=== PATIENT | male | born 1945 | race Caucasian/White ===

== ENCOUNTER 2023-10-28 14:45 | Outpatient (CLI) | payer OTHER, SELFPAY | END 2023-10-28 14:46 | disposition home or self-care (01) | LOC: SLEEP 11-02 09:09 | PROVIDERS: Visit Provider Family Medicine | DX: G47.33 Obstructive sleep apnea (adult) (pediatric) (principal); G47.36 Sleep related hypoventilation in conditions classified elsewhere | CPT/HCPCS: G0399 ==

== ENCOUNTER 2024-03-10 13:55 | Outpatient (CLI) | payer OTHER, SELFPAY ==
--- NOTE | 2024-03-10 14:04 | USCV_ITS ---
Noe Pappas Age: 79 Gender: M : 1945 Exam Date: 03/10/2024 14:31 Ordering Phys: Stanislav Gomes DO Technologist: NELDA Exam Location: [facility] [place] Indication: CAD BP: 170 / 78 HR: 51 Rhythm: Sinus Technical Quality: Adequate MEASUREMENTS (Male / Female) Normal Values 2D ECHO LV Diastolic Diameter PLAX 4.8 cm 4.2 - 5.9 / 3.9 - 5.3 cm IVS Diastolic Thickness 1.5 cm 0.6 - 1.0 / 0.6 - 0.9 cm IVS Systolic Thickness 1.7 cm LVPW Diastolic Thickness 1.6 cm 0.6 - 1.0 / 0.6 - 0.9 cm LVPW Systolic Thickness 2.2 cm LVOT Diameter 2.0 cm LV Ejection Fraction 2D Teich 40.6 % LV Ejection Fraction MOD 2C 49.9 % LV Ejection Fraction 2C AL 49.6 % LA Diameter 3.5 cm RA Systolic Volume 4C AL 23.5 ml RA Systolic Volume 4C MOD 23.0 ml LA Sys Volume AL 36.0 cm cubed LA Sys Volume Index AL 15.9 cm cubed/m squared Aorta at Sinotubular Diameter 2.6 cm IVC Diameter 1.8 cm M-MODE LA Ao Ratio MM 1.1 AV Cusp Separation MM 1.4 cm DOPPLER AV Peak Velocity 188.0 cm/s LVOT Peak Velocity 93.0 cm/s AV Area Cont Eq vti 1.5 cm squared AV Area Cont Eq pk 1.5 cm squared MV Peak Velocity 106.0 cm/s MV Area PHT 2.7 cm squared Mitral E to A Ratio 0.9 TV Peak Velocity 142.0 cm/s TR Peak Velocity 148.0 cm/s TR Peak Gradient 8.8 mmHg TR Mean Velocity 130.0 cm/s TR Mean Gradient 6.9 mmHg TR Velocity Time Integral 54.7 cm TV Peak E Velocity 38.0 cm/s Right Atrial Pressure 3.0 mmHg Pulmonary Artery Systolic Pressu 11.8 mmHg PV Peak Velocity 72.0 cm/s RV Ejection Time 0.4 s FINDINGS Left Ventricle Left ventricle is normal in size. LV systolic function is normal with EF of 50 to 55%. No regional wall motion abnormalities are seen.Diastolic dysfunction is noted. Right Ventricle Normal in size and function Right Atrium Normal in size Left Atrium Normal in size Mitral Valve Mild mitral annular calcification. Trace mitral regurgitation. Aortic Valve Aortic valve is thickened. Mild aortic stenosis with aortic valve area 1.53 cm2 and mean gradient of 10 mmHg. Tricuspid Valve Insufficient TR jet to calculate RVSP. Pulmonic Valve Not well-visualized. Pericardium Normal Aorta Normal in size IVC Appears to be normal CONCLUSIONS LV systolic function is normal with EF of 50 to 55%. Diastolic dysfunction noted Trace mitral regurgitation Mild aortic stenosis No comparison studies are available. Antoine Phillip MD (Electronically Signed) Final Date: 19 Mar 2024 14:31 S
== END 2024-03-10 13:56 | disposition home or self-care (01) ==
LOC: RAD 13:57
PROVIDERS: PCP Emergency Medicine Emergency Medical Services; Visit Provider Family Medicine
DX: I25.10 Atherosclerotic heart disease of native coronary artery without angina pectoris (principal); I35.0 Nonrheumatic aortic (valve) stenosis
CPT/HCPCS: 93306

== ENCOUNTER 2025-10-19 10:30 | Inpatient (IN) | payer OTHER, SELFPAY ==
[2025-10-19] VITALS (18 sets, daily range): BP systolic 92–121; BP diastolic 51–76; PULSE 75–83; RESP 12–27; TEMP 36.3–36.9; O2SAT 90–96; BMI 29.5; BMI 30.3
--- NOTE | 2025-10-19 10:40 | XR_ITS ---
WS: [id number] XR foot RT min 3V* [id number] REASON FOR EXAM: toe injury FINDINGS: Small lucencies in the soft tissues of the tuft tissue swelling adjacent to the tuft of the distal phalanx of the first toe. No radiopaque soft tissue foreign body. No periosteal reaction or bone erosion. 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 XR/XR foot RT min 3V* 13020 IMPRESSION: Soft tissue abnormality without acute bone or joint abnormality.
--- NOTE | 2025-10-19 10:44 | W.ED.WOUNDLC ---
HPI - Wound/Laceration General: Chief Complaint: Wound/Laceration Stated Complaint: Rt big toe inj Time Seen by Provider: 10/19/25 10:39 History of Present Illness: 80-year-old man with a history of diabetes, neuropathy, peripheral vascular disease, and hypertension who presents to the emergency room with worsening foot infection on his left great toe. This has been going on for over a week now. He was started on some antibiotics by his primary but this has not yet improved. Actually is gotten worse he says. He follows with Dr. Ren and podiatry for his diabetic neuropathy and has never had an infection like this before. No systemic fevers. No altered mental status. Related Data Home Medications ?Medication ?Instructions ?Recorded ?Confirmed albuterol sulfate 90 mcg/actuation 2 puff inhalation QID PRN 10/19/25 10/19/25 aerosol inhaler Shortness Of Breath Or Wheezing allopurinol 300 mg tablet 300 mg PO DAILY 10/19/25 10/19/25 aspirin 81 mg tablet,delayed 81 mg PO DAILY 10/19/25 10/19/25 release atorvastatin 40 mg tablet 40 mg PO QPM 10/19/25 10/19/25 cholecalciferol (vitamin D3) 50 50 mcg PO DAILY 10/19/25 10/19/25 mcg (2,000 unit) tablet (Vitamin D3) clopidogrel 75 mg tablet 75 mg PO DAILY 10/19/25 10/19/25 colesevelam 625 mg tablet 625 mg PO TID 10/19/25 10/19/25 diclofenac sodium 1 % topical gel See Rx Instructions .Route .COMPLEX 10/19/25 10/19/25 (Voltaren Arthritis Pain) empagliflozin 25 mg tablet 25 mg PO QAM 10/19/25 10/19/25 famotidine 20 mg tablet 20 mg PO BID 10/19/25 10/19/25 fluticasone propionate 50 2 spray intranasal DAILY 10/19/25 10/19/25 mcg/actuation nasal spray,suspension glimepiride 4 mg tablet 8 mg PO QAM 10/19/25 10/19/25 ketoconazole 2 % topical cream 1 applic topical BID PRN 10/19/25 10/19/25 red/flaking areas magnesium oxide 400 mg PO DAILY 10/19/25 10/19/25 methyl salicylate 30 %-menthol 10 1 applic topical QID PRN pain 10/19/25 10/19/25 % topical cream (Icy Hot) semaglutide (weight loss) 0.25 0.25 mg SUBCUT Q7D 10/19/25 10/19/25 mg/0.5 mL subcutaneous pen injector telmisartan 80 1 tab PO DAILY 10/19/25 10/19/25 mg-hydrochlorothiazide 12.5 mg tablet vit C 226 mg-vit E 90 mg-copper 1 cap PO BID 10/19/25 10/19/25 0.8 mg-zinc oxide-lutein 5 mg capsule (PreserVision Lutein) Previous Rx's ?Medication ?Instructions ?Recorded gabapentin 300 mg capsule 900 mg (3 x 300 mg) PO TID #810 01/04/23 caps diphenhydramine-zinc acetate 2 1 spray topical QID PRN skin 04/23/25 %-0.1 % topical spray (Benadryl irritation #59 mL Itch Cooling) febuxostat 80 mg tablet 80 mg PO DAILY #90 tabs 10/01/25 doxycycline hyclate 100 mg capsule 100 mg PO BID cellulitis #14 caps 10/12/25 levofloxacin 750 mg tablet 750 mg PO DAILY 7 days #7 tabs 10/18/25 Allergies Allergy/AdvReac Type Severity Reaction Status Date / Time MIRACLE Inhibitors Allergy Severe pancreatiti Verified 10/18/25 17:50 s atorvastatin (From Lipitor) Allergy Severe pancreatiti Verified 10/18/25 17:50 s Review of Systems Narrative: Constitutional symptoms: Negative except as documented in HPI. Skin symptoms: Negative except as documented in HPI. Eye symptoms: Negative except as documented in HPI. ENMT symptoms: Negative except as documented in HPI. Respiratory symptoms: Negative except as documented in HPI. Cardiovascular symptoms: Negative except as documented in HPI. Gastrointestinal symptoms: Negative except as documented in HPI. Genitourinary symptoms: Negative except as documented in HPI. Musculoskeletal symptoms: Negative except as documented in HPI. Neurologic symptoms: Negative except as documented in HPI. Psychiatric symptoms: Negative except as documented in HPI. Endocrine symptoms: Negative except as documented in HPI. PFSH ED PFSH: Social History Smoking and tobacco/nicotine status: former use of tobacco/nicotine Physical Exam Narrative: EXAM NARRATIVE: General: Alert, no acute distress. Skin: Warm, dry. Left great toe is in picture below. Blackening, redness, swelling Head: Normocephalic, atraumatic. Neck: Supple, trachea midline. Eye: Extraocular movements are intact. Ears, nose, mouth and throat: mucosa moist. Cardiovascular: Regular, Normal peripheral perfusion. Respiratory: Lungs are clear to auscultation, respirations are non-labored, breath sounds are equal, Symmetrical chest wall expansion. Gastrointestinal: Soft, Nontender, Non distended Musculoskeletal: Normal ROM, no deformity. Neurological: Alert and oriented, No focal neurological deficit observed. Psychiatric: Cooperative, appropriate mood & affect. Course Vital Signs: Vital signs: Vital Signs Temperature 97.8 F 10/19/25 10:37 Pulse Rate 75 10/19/25 10:37 Respiratory Rate 16 10/19/25 10:37 Blood Pressure 106/76 10/19/25 10:37 Pulse Oximetry 93 10/19/25 10:37 Oxygen Delivery Me thod Room Air 10/19/25 10:37 MDM - Wound/Laceration Medical Decision Making Medical decision making Patient's reason for coming to the emergency room: Social determinants: Patient is . He says his has dementia and he is quite concerned about getting home before nighttime. We are working to try to get family member to help care for his princess. I reviewed the patient's medical record. 80-year-old man with a history of diabetes, neuropathy, peripheral vascular disease, and hypertension I reviewed the patient's current home meds Patient is on Plavix. Alternate historians: None Differential diagnosis including but not limited to and based on the above HPI, review of systems and physical exam in this patient with lower extremity swelling and redness: This appears to be a pretty clear-cut diabetic foot infection. Inflammatory markers. Blood cultures. Procalcitonin all to determine extent of infection. Orders placed to evaluate differential diagnosis based on the above differential, HPI and physical exam EKG: Time 1154. Rate 76. Normal sinus rhythm, No ST-T changes, no ectopy, right bundle branch block, This was reviewed and interpreted by myself the ER physician at 1159 X-ray of the left foot: Soft tissue abnormality with possible air. No bone or joint abnormality. This was reviewed and interpreted by myself the emergency room physician. I also reviewed the radiology report. Lab Review: Laboratory results were reviewed and interpreted by myself the emergency room physician. No leukocytosis. BUN and creatinine are somewhat elevated at 58 and 1.9. I do not know his baseline. CRP is elevated at 62 and ESR is elevated at 31. Lactic acid is negative. Assessment of risk: Level of risk: High risk patient. Multiple comorbidities. Also concerns for his at home. Hospitalization considerations: Patient is being admitted for surgery Reexamination: Patient remained stable. No increased work of breathing. No altered mental status. No focal motor deficits. Consultation: I spoke with Dr. Rivera who is on-call for podiatry. He saw the patient in the emergency room agrees with antibiotics and admission. Consultation: I spoke with Dr. Kimble who is on-call for the hospitalist service who agrees to admission. Assessment and plan: Diabetic foot infection Renal insufficiency ?IV cefepime and Zyvox in the emergency room. 1 L normal saline bolus. -I discussed the patient with the hospitalist on-call who is admitting the patient. - Discussed findings and plan with patient. Answered any questions. - All laboratory values were reviewed and interpreted personally by myself, the ER physician - All imaging was reviewed and interpreted personally by myself, the ER physician. - Evaluation and treatment of this problem were appropriate in the emergency setting Lab Data 10/19/25 10:58 10/19/25 10:58 Radiology Impressions Foot X-Ray 10/19/25 10:40 IMPRESSION: Soft tissue abnormality without acute bone or joint abnormality. Laboratory Results WBC 10.33 10^3/uL (3.29-11.43) 10/19/25 10:58 RBC 4.26 10^6/uL (3.85-5.65) 10/19/25 10:58 Hgb 13.10 g/dL (11.27-16.99) 10/19/25 10:58 Hct 41.4 % (37-53) 10/19/25 10:58 MCV 97.2 fl (82-101) 10/19/25 10:58 MCH 30.8 pg (27-33) 10/19/25 10:58 MCHC 31.6 g/dL (30-55) 10/19/25 10:58 RDW 14.6 % (12.1-15.1) 10/19/25 10:58 Plt Count 255 10^3/cmm (157-399) 10/19/25 10:58 MPV 9.3 fL (7.4-10.4) 10/19/25 10:58 Neut % (Auto) 68.2 % 10/19/25 10:58 Lymph % (Auto) 15.9 % 10/19/25 10:58 Calvert % (Auto) 12.7 % 10/19/25 10:58 Eos % (Auto) 2.2 % 10/19/25 10:58 Baso % (Auto) 0.7 % 10/19/25 10:58 Neut # (Auto) 7.05 10^3/uL (1.8-7.7) 10/19/25 10:58 Lymph # (Auto) 1.6 10^3/uL (0.8-4.8) 10/19/25 10:58 Calvert # (Auto) 1.3 10^3/uL (0.2-0.9) H 10/19/25 10:58 Eos # (Auto) 0.2 10^3/uL (0.0-0.8) 10/19/25 10:58 Baso # (Auto) 0.1 10^3/uL (0.0-0.1) 10/19/25 10:58 Nucleated RBC % (auto) 0 % 10/19/25 10:58 Nucleated RBCs # 0.0 /100WBC 10/19/25 10:58 ESR 31 mm/hr (0-10) H 10/19/25 10:58 PT 14.70 SECONDS (12.1-14.9) 10/19/25 10:58 INR 1.07 (0.8-1.2) 10/19/25 10:58 APTT 30.1 SECONDS (23.9-36.7) 10/19/25 10:58 Sodium 135 mmol/L (136-145) L 10/19/25 10:58 Potassium 4.5 mmol/L (3.5-5.1) 10/19/25 10:58 Chloride 98 mmol/L (98-107) 10/19/25 10:58 Carbon Dioxide 22 mmol/L (22-29) 10/19/25 10:58 Anion Gap 19.5 (5-19) H 10/19/25 10:58 BUN 58 mg/dL (8-23) H 10/19/25 10:58 Creatinine 1.9 mg/dL (0.7-1.2) H 10/19/25 10:58 GFR Calculation Not Reportable 10/19/25 10:58 Glucose 88 mg/dL (65-115) 10/19/25 10:58 Calculated Osmolality 296 mOsm/kg (285-295) H 10/19/25 10:58 Lactic Acid 1.0 mmol/L (0.5-2.2) 10/19/25 10:58 Calcium 9.4 mg/dL (8.5-10.5) 10/19/25 10:58 Total Bilirubin 0.6 mg/dL (0.15-1.2) 10/19/25 10:58 AST 30 U/L (0-40) 10/19/25 10:58 ALT 33 U/L (0-41) 10/19/25 10:58 Alkaline Phosphatase 83 U/L (40-130) 10/19/25 10:58 C-Reactive Protein 62.1 mg/L (0.0-4.9) H 10/19/25 10:58 Total Protein 7.7 g/dL (6.6-8.7) 10/19/25 10:58 Albumin 3.3 g/dL (3.5-5.2) L 10/19/25 10:58 Globulin 4.4 g/dL (1.3-4.6) 10/19/25 10:58 Procalcitonin 0.25 ng/mL (0-0.5) 10/19/25 10:58 All radiology interpretation(s) finalized by discharge Discharge Plan Discharge Patient Disposition: Admitted As Inpatient Clinical Impression: Diabetic foot infection, Renal insufficiency Condition: Stable Coding Level of Care Code ED Chair Mechanic for Wanda Amador
[2025-10-19 11:06] LABS: Hematocrit 41.4 % (37-53); Hemoglobin 13.10 g/dL (11.27-16.99); Mean Corpuscular HGB Conc 31.6 g/dL (30-55); Mean Corpuscular Hemoglobin 30.8 pg (27-33); Mean Corpuscular Volume 97.2 fl (82-101); Nucleated Red Blood Cells % 0 %; Platelet Count 255 10^3/cmm (157-399); Red Blood Count 4.26 10^6/uL (3.85-5.65); White Blood Count 10.33 10^3/uL (3.29-11.43)
--- NOTE | 2025-10-19 11:13 | PC.PHAR ---
Pt is [facility] for med list 10/19/25 11:13am
[2025-10-19] MEDS: linezolid premix 600 MG/300 ML PREMIX 300 MG IV (11:20)
[2025-10-19] MEDS: cefepime 2,000 mg SDV 2000 MG IVP (11:20)
[2025-10-19 11:32] LABS: Lactic Sepsis W/Reflex 1.0 mmol/L (0.5-2.2)
[2025-10-19 11:43] LABS: Procalcitonin 0.25 ng/mL (0-0.5)
[2025-10-19 11:54] LABS: Alanine Aminotransferase 33 U/L (0-41); Albumin Level 3.3 g/dL (3.5-5.2); Alkaline Phosphatase 83 U/L (40-130); Anion Gap 19.5 (5-19); Aspartate Amino Transferase 30 U/L (0-40); Blood Urea Nitrogen 58 mg/dL (8-23); Calcium 9.4 mg/dL (8.5-10.5); Carbon Dioxide 22 mmol/L (22-29); Chloride 98 mmol/L (98-107); Globulin 4.4 g/dL (1.3-4.6); Glucose 88 mg/dL (65-115); Osmolality Calculated 296 mOsm/kg (285-295); Potassium 4.5 mmol/L (3.5-5.1); Sodium 135 mmol/L (136-145); Total Protein 7.7 g/dL (6.6-8.7)
--- NOTE | 2025-10-19 11:54 | ECG_ITS ---
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
[2025-10-19 12:03] LABS: INR 1.07 (0.8-1.2); Prothrombin Time 14.70 SECONDS (12.1-14.9)
[2025-10-19 12:04] LABS: Partial Thromboplastin Time 30.1 SECONDS (23.9-36.7)
--- NOTE | 2025-10-19 12:39 | ANES.PREANE2 ---
Pre-Anesthetic Assessment Height/Weight: Height 5 ft 9 in Weight 200 lb Temp Pulse Resp BP Pulse Ox O2 Del Method 97.8 F 75 16 106/76 93 Room Air 10/19/25 10:37 10/19/25 10:37 10/19/25 10:37 10/19/25 10:37 10/19/25 10:37 10/19/25 10:37 Preop Diagnosis: Osteomyelitis Was Beta Mir taken within 24 hours: N/A Was Clonidine taken within 24 hours: N/A Social No alcohol and No tobacco Exam alert, oriented x 3, clear to auscultation bilaterally and regular rate & rhythm Airway Submandibular: within normal limits Cervical ROM: within normal limits Mallampati: Class III Comments: Comments: Multiple missing teeth, denies any loose Anesthetic Plan ASA status: 3 Anesthesia: MAC Other: No prior issues with anesthesia NPO since yesterday evening History of type 2 diabetes on glipizide. Preop BS 88 GERD on omeprazole Hypertension on telmisartan?HCTZ Labs reviewed from 10/19/2025 and acceptable for procedure today Patient on semaglutide. Taken 2 days ago EKG sinus rhythm with RBBB Plan for GETA with RSI Medications/Allergies Home Medications ?Medication ?Instructions ?Recorded ?Confirmed ?Last Taken ?Type gabapentin 300 mg capsule 900 mg (3 x 300 mg) PO TID #810 01/04/23 10/19/25 10/18/25 Rx caps diphenhydramine-zinc acetate 2 1 spray topical QID PRN skin 04/23/25 10/19/25 Unknown Rx %-0.1 % topical spray (Benadryl irritation #59 mL Itch Cooling) febuxostat 80 mg tablet 80 mg PO DAILY #90 tabs 10/01/25 10/19/25 10/18/25 Rx doxycycline hyclate 100 mg capsule 100 mg PO BID cellulitis #14 caps 10/12/25 10/19/25 10/18/25 Rx levofloxacin 750 mg tablet 750 mg PO DAILY 7 days #7 tabs 10/18/25 10/19/25 Unknown Rx albuterol sulfate 90 mcg/actuation 2 puff inhalation QID PRN 10/19/25 10/19/25 Unknown History aerosol inhaler Shortness Of Breath Or Wheezing allopurinol 300 mg tablet 300 mg PO DAILY 12/11/0110/19/25 10/18/25 History aspirin 81 mg tablet,delayed 81 mg PO DAILY 10/19/25 10/19/25 10/18/25 History release atorvastatin 40 mg tablet 40 mg PO QPM 10/19/25 10/19/25 10/18/25 History cholecalciferol (vitamin D3) 50 50 mcg PO DAILY 10/19/25 10/19/25 10/18/25 History mcg (2,000 unit) tablet (Vitamin D3) clopidogrel 75 mg tablet 75 mg PO DAILY 10/19/25 10/19/25 10/18/25 History colesevelam 625 mg tablet 625 mg PO TID 10/19/25 10/19/25 10/18/25 History diclofenac sodium 1 % topical gel See Rx Instructions .Route .COMPLEX 10/19/25 10/19/25 Unknown History (Voltaren Arthritis Pain) empagliflozin 25 mg tablet 25 mg PO QAM 10/19/25 10/19/25 10/18/25 History famotidine 20 mg tablet 20 mg PO BID 10/19/25 10/19/25 10/18/25 History fluticasone propionate 50 2 spray intranasal DAILY 10/19/25 10/19/25 10/18/25 History mcg/actuation nasal spray,suspension glimepiride 4 mg tablet 8 mg PO QAM 10/19/25 10/19/25 10/18/25 History ketoconazole 2 % topical cream 1 applic topical BID PRN 10/19/25 10/19/25 Unknown History red/flaking areas magnesium oxide 400 mg PO DAILY 10/19/25 10/19/25 10/18/25 History methyl salicylate 30 %-menthol 10 1 applic topical QID PRN pain 10/19/25 10/19/25 Unknown History % topical cream (Icy Hot) semaglutide (weight loss) 0.25 0.25 mg SUBCUT Q7D 10/19/25 10/19/25 10/17/25 History mg/0.5 mL subcutaneous pen injector telmisartan 80 1 tab PO DAILY 10/19/25 10/19/25 10/18/25 History mg-hydrochlorothiazide 12.5 mg tablet vit C 226 mg-vit E 90 mg-copper 1 cap PO BID 10/19/25 10/19/25 10/18/25 History 0.8 mg-zinc oxide-lutein 5 mg capsule (PreserVision Lutein) Allergies Allergy/AdvReac Type Severity Reaction Status Date / Time MIRACLE Inhibitors Allergy Severe pancreatiti Verified 10/18/25 17:50 s atorvastatin (From Lipitor) Allergy Severe pancreatiti Verified 10/18/25 17:50 s [facility] Anesthesia Social History Smoking and tobacco/nicotine status: former use of tobacco/nicotine Data Anesthesia 10/19/25 10:58 10/19/25 10:58 Short CBC 10/19/25 Range/Units 10:58 WBC 10.33 (3.29-11.43) 10^3/uL Hgb 13.10 (11.27-16.99) g/dL Hct 41.4 (37-53) % MCV 97.2 (82-101) fl Plt Count 255 (157-399) 10^3/cmm Neut % (Auto) 68.2 % Neut # (Auto) 7.05 (1.8-7.7) 10^3/uL BMP 10/19/25 10:58 Sodium 135 L Potassium 4.5 Chloride 98 Carbon Dioxide 22 BUN 58 H Creatinine 1.9 H Glucose 88 Calcium 9.4 Liver Function 10/19/25 Range/Units 10:58 Total Bilirubin 0.6 (0.15-1.2) mg/dL AST 30 (0-40) U/L ALT 33 (0-41) U/L Alkaline Phosphatase 83 (40-130) U/L Albumin 3.3 L (3.5-5.2) g/dL Coags 10/19/25 10:58 ESR 31 H PT 14.70 INR 1.07 APTT 30.1 C-Reactive Protein 62.1 H Microbiology 10/19/25 11:00 Blood Culture - Preliminary Blood SPECIMEN COLLECTED 10/19/25 11:00 Blood Culture - Preliminary Blood SPECIMEN COLLECTED
--- NOTE | 2025-10-19 13:18 | P.HPUD_ITS ---
Surgery/Procedure H&P Update DATE OF PROCEDURE: October 19, 2025 DATE H&P PERFORMED: 10/19/25 H&P UPDATE INFORMATION: I have reviewed H&P completed within last 30 days, I have examined patient prior to procedure, No changes to prior documentation, H&P to be scanned into chart, H&P is in [facility] EMR on date indicated and Risks and benefits of the procedure reviewed PLANNED PROCEDURE: Operation Date: 10/19/25 13:30 Proposed Procedures p Amputation Toe/s Hallux Amputation(Right) - Cm Rivera DPM
--- NOTE | 2025-10-19 13:35 | PM.HP ---
Providers/Chief Complaint Admitting Physician: Miko Kimble MD Primary Care Provider: Stanislav Gomes DO Chief Complaint: Rt big toe inj History of Present Illness Noe Pappas is a 80 year old male with past medical history of type 2 diabetes mellitus hyperlipidemia, CAD post PCI presents to the ER today because of change in the color of his great toe along with pain which has been getting worse over the last 1 week. Patient states he woke up 1 week ago with pain and still for which he went to his primary care provider and was started on oral antibiotics but over the last few days the color of the toe has been changing hence he presented to the ER today. In the ER, He was and showed seen by podiatry team he was diagnosed diabetic foot infection along with signs for gangrene which he has been taken to the OR. Review of Systems General: Reports: 10 or more systems reviewed and unremarkable except in HPI and below Const: Denies: fever(s), chills, body aches, change in appetite, change in weight, malaise, night sweats, diaphoresis, change in sleep pattern, daytime sleepiness or snoring Eyes: Denies: change in vision, blurry vision, photophobia, eye discomfort or eye discharge ENMT: Denies: throat pain, enlarged tonsils, hoarseness, mouth pain, oral sores, dry mouth, tinnitus, nasal congestion or post nasal drip Card: Denies: chest pain, palpitations, irregular heart rhythm, edema, swelling of feet/ankles, lightheadedness, syncope, pre-syncope, dyspnea on exertion, orthopnea, leg pain with exertion or acrocyanosis Resp: Denies: dyspnea, productive cough, non-productive cough, wheezing, stridor, pain on inspiration, change in phlegm color, hemoptysis or chest congestion GI: Denies: abdominal pain, nausea, vomiting, hematemesis, coffee ground emesis, dysphagia, heartburn, diarrhea, constipation, bloating, GI cramping, change in bowel habits, pain on defecation, hematochezia or melena : Denies: flank pain, difficulty urinating, dysuria, urinary frequency, urinary urgency, urinary hesitancy, urinary dribbling, difficulty starting urination, change in urine stream, nocturia or hematuria Musc: Denies: neck pain, back pain, extremity pain, joint pain, joint swelling, joint redness, joint stiffness or limited range of motion Neuro: Denies: headache(s), numbness in extremities, weakness in extremities, sensory changes, lack of coordination, difficulty walking, frequent falls, dizziness, vertigo, confusion, Slurred speech present, difficulty communicating thoughts or seizure-like activity Psych: Denies: anxiety, depression, mood swings, panic attacks, hopelessness or irritability Endo: Denies: polyuria, polydipsia, tired all the time, cold intolerance, excessive sweating, flushing or heat intolerance Les/Lymph: Denies: easy bruising or easy bleeding All/Imm: Denies: tongue swelling, facial swelling or acute wheezing Medications/Allergies Home Medications ?Medication ?Instructions ?Recorded ?Confirmed ?Last Taken ?Type gabapentin 300 mg capsule 900 mg (3 x 300 mg) PO TID #810 01/04/23 10/19/25 10/18/25 Rx caps diphenhydramine-zinc acetate 2 1 spray topical QID PRN skin 04/23/25 10/19/25 Unknown Rx %-0.1 % topical spray (Benadryl irritation #59 mL Itch Cooling) febuxostat 80 mg tablet 80 mg PO DAILY #90 tabs 10/01/25 10/19/25 10/18/25 Rx doxycycline hyclate 100 mg capsule 100 mg PO BID cellulitis #14 caps 10/12/25 10/19/25 10/18/25 Rx levofloxacin 750 mg tablet 750 mg PO DAILY 7 days #7 tabs 10/18/25 10/19/25 Unknown Rx albuterol sulfate 90 mcg/actuation 2 puff inhalation QID PRN 10/19/25 10/19/25 Unknown History aerosol inhaler Shortness Of Breath Or Wheezing allopurinol 300 mg tablet 300 mg PO DAILY 10/19/25 10/19/25 10/18/25 History aspirin 81 mg tablet,delayed 81 mg PO DAILY 10/19/25 10/19/25 10/18/25 History release atorvastatin 40 mg tablet 40 mg PO QPM 10/19/25 10/19/25 10/18/25 History cholecalciferol (vitamin D3) 50 50 mcg PO DAILY 10/19/25 10/19/25 10/18/25 History mcg (2,000 unit) tablet (Vitamin D3) clopidogrel 75 mg tablet 75 mg PO DAILY 10/19/25 10/19/25 10/18/25 History colesevelam 625 mg tablet 625 mg PO TID 10/19/25 10/19/25 10/18/25 History diclofenac sodium 1 % topical gel See Rx Instructions .Route .COMPLEX 10/19/25 10/19/25 Unknown History (Voltaren Arthritis Pain) empagliflozin 25 mg tablet 25 mg PO QAM 10/19/25 10/19/25 10/18/25 History famotidine 20 mg tablet 20 mg PO BID 10/19/25 10/19/25 10/18/25 History fluticasone propionate 50 2 spray intranasal DAILY 10/19/25 10/19/25 10/18/25 History mcg/actuation nasal spray,suspension glimepiride 4 mg tablet 8 mg PO QAM 10/19/25 10/19/25 10/18/25 History ketoconazole 2 % topical cream 1 applic topical BID PRN 10/19/25 10/19/25 Unknown History red/flaking areas magnesium oxide 400 mg PO DAILY 10/19/25 10/19/25 10/18/25 History methyl salicylate 30 %-menthol 10 1 applic topical QID PRN pain 10/19/25 10/19/25 Unknown History % topical cream (Icy Hot) semaglutide (weight loss) 0.25 0.25 mg SUBCUT Q7D 10/19/25 10/19/25 10/17/25 History mg/0.5 mL subcutaneous pen injector telmisartan 80 1 tab PO DAILY 10/19/25 10/19/25 10/18/25 History mg-hydrochlorothiazide 12.5 mg tablet vit C 226 mg-vit E 90 mg-copper 1 cap PO BID 10/19/25 10/19/25 10/18/25 History 0.8 mg-zinc oxide-lutein 5 mg capsule (PreserVision Lutein) Allergies Allergy/AdvReac Type Severity Reaction Status Date / Time MIRACLE Inhibitors Allergy Severe pancreatiti Verified 10/18/25 17:50 s atorvastatin (From Lipitor) Allergy Severe pancreatiti Verified 10/18/25 17:50 s PFSH Acute PFSH: Medical History (Updated 10/19/25 @ 13:43 by Miko Kimble MD) CKD (chronic kidney disease) Diabetic peripheral neuropathy associated with type 2 diabetes mellitus Diabetes Hyperlipidemia PVD (peripheral vascular disease) Surgical History (Updated 10/19/25 @ 13:49 by Miko Kimble MD) H/O heart artery stent Social History (Updated 10/19/25 @ 13:48 by Miko Kimble MD) Smoking and tobacco/nicotine status: former use of tobacco/nicotine Alcohol intake: never Substance/Drug Use: never Caregiver/support person: Yes Lives independently: Yes Housing: House Vitals/I&O/Wt Last Vital Signs Temp 97.8 F 10/19/25 10:37 Pulse 81 10/19/25 13:07 Resp 16 10/19/25 10:37 BP 103/69 10/19/25 13:07 Pulse Ox 93 10/19/25 13:07 O2 Del Method Room Air 10/19/25 10:37 10/18/25 10/19/25 10/19/25 22:59 06:59 14:59 Intake Total 300 / 300 Balance 300 / 300 Weight last 48 hrs Weight 90.718 kg Physical Exam Narrative: General: No acute distress, AO x3 HEENT: PERRLA, pupils bilaterally equal and reactive Chest: Normal vesicular breath sounds, no added sounds, equal good air entry bilaterally CVS: S1-S2 regular, no murmurs, no tachycardia, no gallops, no rubs Abdomen: Soft, nontender, no organomegaly, bowel sounds present Neuro: No focal deficits, no facial deformity, AO x3, power 5/5 in all limbs Skin: OTHER: Data 10/19/25 10:58 10/19/25 10:58 Micro: Microbiology 10/19/25 11:00 Blood Culture - Preliminary Blood SPECIMEN COLLECTED 10/19/25 11:00 Blood Culture - Preliminary Blood SPECIMEN COLLECTED A&P Assessment and plan 1. Diabetic foot infection: 2. Cellulitis: 3. PVD (peripheral vascular disease): 4. Diarrhea: 5. CKD (chronic kidney disease): Plan: 80-year-old gentleman past medical history of type 2 diabetes mellitus admitted to hospital with concern for diabetic foot infection and gangrene. Diabetic foot infection/gangrene: Podiatry consulted from the ER. Plan for possible amputation. Appreciate ESR, CRP. Foot x-ray done in the ER does not show any bone or joint abnormality. Follow-up blood culture. Will request for OR culture. Bryant started on IV vancomycin and Zosyn for now. Depending on the OR findings will discuss further with podiatry team to see if patient needs long-term antibiotics. Hypertension: Goal blood pressure less than 140/90 [place]. Type 2 diabetes mellitus: Check A1c. Start on sliding scale low-dose protocol. Hold off on OHA for now. CAD: No active chest pain. Continue home dose of aspirin, Plavix. Check lipid panel. CKD: Do not have baseline creatinine recently. Creatinine in the past up to 1.4. Currently 1.9. Medical reconciliation done for nephrotoxic drugs. Monitor BMP daily. Check TSH. Carb consistent cardiac diet postoperatively Famotidine for PUD prophylaxis Heparin 5000 every 12 hours for DVT prophylaxis PDMP PDMP Reviewed: Not Reviewed Attestations Medical Necessity Statement*: Admission for more than 2 midnights for management of diabetic foot infection with concern for gangrene requiring amputation, antibiotics, type of diabetes mellitus with CKD Diagnoses Diabetic foot infection E11.628; L08.9 Cellulitis L03.90 PVD (peripheral vascular disease) I73.9 Diarrhea R19.7 CKD (chronic kidney disease) N18.9
[2025-10-19] MEDS: BUPivacaine 0.5% INJ 30 mL INJECTION (14:19)
--- NOTE | 2025-10-19 14:25 | W.PM.BPON ---
Date of procedure: 10/19/2025 Surgeon name: Dr. Cm Rivera D.P.M. Electric Operator(s) name(s): See intraoperative documentation Procedure(s) performed: Right hallux amputation Description of findings: Wet gangrene distal right hallux. Remaining tissue is healthy and viable after amputation at metatarsophalangeal joint Estimated blood loss: 5 cc Tourniquet time: 5 minutes Specimen(s) removed: Right hallux sent to pathology as surgical specimen. Cultures aerobic and anaerobic sent to micro Post-operative diagnosis: Wet gangrene right hallux
--- NOTE | 2025-10-19 14:26 | PM.OP ---
Operative Report Date of procedure: October 19, 2025 Surgeon: Cm Rivera DPM Procedure: Date of procedure: 10/19/2025 Pre-op diagnosis: Right hallux gangrene Post-op diagnosis: Same Post-op findings: Wet gangrene right hallux Procedure done: Right hallux amputation CPT 05269 Implants: None Specimens removed: Right hallux and pathology of surgical specimen. Cultures aerobic and anaerobic sent to [place] for ID and sensitivity Surgeon: Dr. Cm Rivera DPM Court Deputy: Shirin Estimated blood loss: 5 cc Tourniquet time: 5 minutes Complications: None The patient presents with a severe foot infection involving right hallux, characterized by erythema, swelling, and drainage. The infection is complicated by underlying conditions, including diabetes, peripheral vascular disease, which have contributed to the progression of the infection despite conservative management. Preoperative imaging and laboratory results indicate gangrene, abscess formation, necessitating surgical intervention. The planned procedure is intended to address the infection, debride necrotic tissue, and, if necessary, assess the viability of surrounding structures to prevent further complications. The patient has been NPO since midnight. The history has been reviewed and the history and physical is current. The signed consent was confirmed and placed in the patient chart. Patient imaging has been reviewed and is consistent with the diagnosis. Under mild sedation, the patient was brought into the operating room and left on the gurney in the supine position. Patient is receiving antibiotics around the clock on the floor, Therefore, additional antibiotic prophylaxix was not administered. MAC sedation was then performed by the anesthesiateam. Local field block was performed using 0.5% Marcaine plain. A pneumatic tourniquet was then placed about the right ankle. The operative extremity was then prepped and draped in the usual fashion. After prep, the following procedure was then performed. Tourniquet was inflated to 250 mmHg. Attention was directed to the right hallux where a fishmouth incision was made circumferentially about the hallux with care to preserve as much soft tissue as possible. Dissection was carried full-thickness down to level of bone. Dissection was carried out to the level of the first metatarsophalangeal joint. The collateral ligaments and attachments of the first metatarsal phalangeal joint capsule were excised. A penetrating towel clamp was then used to grasp the end of the hallux to joystick the hallux for amputation. All connections of the first metatarsophalangeal joint were released using a #15 blade. The hallux was then passed from the operative field be sent as specimen. Cultures of distal aspect of right hallux site of gangrene were obtained both aerobic and anaerobic and sent to micro for ID and sensitivity. The remaining tissues appeared healthy and viable in nature. The metatarsal head appeared healthy without any degenerative changes. The flexor and extensor tendons were then grasped and pulled distally before being incised as proximally as possible using a #15 blade. All remaining tissue appeared healthy. The site was then irrigated with copious amounts of sterile saline via cystoscopy tubing. The amputation site was then closed using 3-0 Prolene in simple interrupted, horizontal mattress and retention type fashion. The tourniquet was let down and good hyperemic response was noted to all remaining digits of the operative extremity. The incision site was then dressed with Xeroform, 4 x 4 gauze, Kerlix, Coban. The patient tolerated the procedure and anesthesia well and without complication. The patient was transported from the operating room to the recovery room with vital signs stable and vascular status intact to all remaining digits of the right foot. Thepatient was instructed to remain weightbearing as tolerated in postop shoe to the operative extremity, to keep surgical dressing clean, dry and intact. The patient will be transferred back to the floor once anesthesia criteria is met. I will continue to round on and follow the patient in the inpatientsetting and provide recommendations to stabilize the patient for discharge.
--- NOTE | 2025-10-19 14:36 | USR_ITS ---
PROCEDURE INFORMATION: Exam: US Duplex Bilateral Lower Extremity Arteries Exam date and time: 10/19/2025 5:34 PM Age: 80 years old Clinical indication: Condition or disease; Other: Pad; Prior surgery; Surgery date: Post-operative (0-2 days); Surgery type: RT toe amputation today TECHNIQUE: Imaging protocol: Real-time ultrasound scan of the arteries of the bilateral lower extremities with 2-D sung scale, color Doppler flow and spectral waveform analysis. Images documented and saved. COMPARISON: CR XR foot RT min 3V* [id number] 10/19/2025 10:50 AM FINDINGS: Right common femoral artery: No occlusion or significant stenosis. Normal waveform. Right superficial femoral artery: No occlusion or significant stenosis. Normal waveform. Right popliteal artery: No occlusion or significant stenosis. Normal waveform. Right calf/foot arteries: No occlusion or significant stenosis in the visualized arteries. Monophasic waveforms. Dorsalis pedis artery is patent. Left common femoral artery: No occlusion or significant stenosis. Normal waveform. Left superficial femoral artery: No occlusion or significant stenosis. Normal waveform. Left popliteal artery: No occlusion or significant stenosis. Normal waveform. Left calf/foot arteries: No occlusion or significant stenosis in the visualized arteries. Monophasic waveforms. Dorsalis pedis artery is patent. RIGHT PSV in cm/sec as follows: EIA: 78, 86, [address] [place]: 99 PFA: Not obtained SFA: 63, 97, 80, Popliteal: 92 Post tib: 85 Dorsalis pedis: 63 LEFT PSV in cm/sec as follows: EIA: 92, 92, [address] [place]: 91 PFA: Not obtained SFA: 81, 65, 86 Popliteal: 75 Post tib: 84 Dorsalis pedis: 37 US/CV arterial duplex [facility] [id number] IMPRESSION: No definitive sonographic evidence of high-grade stenosis by peak systolic velocity criteria. Incidentals as above.
--- NOTE | 2025-10-19 15:05 | ANE.PACU2 ---
Inpatient post-anesthesia follow up: Airway intact: Yes Vital signs: Temperature 97.5 F Pulse Rate 68 Respiratory Rate 17 Blood Pressure 122/73 Pulse Oximetry 93 Oxygen Delivery Me thod Room Air Oxygen Flow Rate 2 Fraction of Inspir ed Oxygen Hydration adequate: Yes Nausea and vomiting: No Pain level: 1 Mental status: Baseline
--- NOTE | 2025-10-19 15:44 | PM.CONSULT ---
Providers/Reason For Consult Consulting Physician/Specialty*: Jelena Rubio.P.MSantiago/podiatry Reason for Consult*: Right hallux gangrene Attending Physician: Miko Kimble MD Primary Care Provider: Stanislav Gomes DO History of Present Illness History of Present Illness Noe Pappas is a 80 year old male history of type 2 diabetes who presented to the emergency department today after failed outpatient antibiotics from primary care provider for worsening right hallux wound. Podiatry was consulted to evaluate provide further treatment recommendations. Patient states that the wound has been present for the past few days and has rapidly worsened. Denies any constitutional symptoms at this time. Review of Systems General: Reports: 10 or more systems reviewed and unremarkable except in HPI and below Const: Denies: fever(s), chills, body aches or change in appetite Eyes: Denies: change in vision or blurry vision Card: Denies: chest pain, palpitations or irregular heart rhythm Resp: Denies: dyspnea GI: Denies: abdominal pain, nausea, vomiting or diarrhea Musc: Reports: joint stiffness Skin/Breast: Reports: non-healing lesions and lesions Neuro: Reports: numbness in extremities Medications/Allergies Home Medications ?Medication ?Instructions ?Recorded ?Confirmed ?Last Taken ?Type gabapentin 300 mg capsule 900 mg (3 x 300 mg) PO TID #810 01/04/23 10/19/25 10/18/25 Rx caps diphenhydramine-zinc acetate 2 1 spray topical QID PRN skin 04/23/25 10/19/25 Unknown Rx %-0.1 % topical spray (Benadryl irritation #59 mL Itch Cooling) febuxostat 80 mg tablet 80 mg PO DAILY #90 tabs 10/01/25 10/19/25 10/18/25 Rx doxycycline hyclate 100 mg capsule 100 mg PO BID cellulitis #14 caps 10/12/25 10/19/25 10/18/25 Rx levofloxacin 750 mg tablet 750 mg PO DAILY 7 days #7 tabs 10/18/25 10/19/25 Unknown Rx albuterol sulfate 90 mcg/actuation 2 puff inhalation QID PRN 10/19/25 10/19/25 Unknown History aerosol inhaler Shortness Of Breath Or Wheezing allopurinol 300 mg tablet 300 mg PO DAILY 10/19/25 10/19/2510/18/25 History aspirin 81 mg tablet,delayed 81 mg PO DAILY 10/19/25 10/19/25 10/18/25 History release atorvastatin 40 mg tablet 40 mg PO QPM 10/19/25 10/19/25 10/18/25 History cholecalciferol (vitamin D3) 50 50 mcg PO DAILY 10/19/25 10/19/25 10/18/25 History mcg (2,000 unit) tablet (Vitamin D3) clopidogrel 75 mg tablet 75 mg PO DAILY 10/19/25 10/19/25 10/18/25 History colesevelam 625 mg tablet 625 mg PO TID 10/19/25 10/19/25 10/18/25 History diclofenac sodium 1 % topical gel See Rx Instructions .Route .COMPLEX 10/19/25 10/19/25 Unknown History (Voltaren Arthritis Pain) empagliflozin 25 mg tablet 25 mg PO QAM 10/19/25 10/19/25 10/18/25 History famotidine 20 mg tablet 20 mg PO BID 10/19/25 10/19/25 10/18/25 History fluticasone propionate 50 2 spray intranasal DAILY 10/19/25 10/19/25 10/18/25 History mcg/actuation nasal spray,suspension glimepiride 4 mg tablet 8 mg PO QAM 10/19/25 10/19/25 10/18/25 History ketoconazole 2 % topical cream 1 applic topical BID PRN 10/19/25 10/19/25 Unknown History red/flaking areas magnesium oxide 400 mg PO DAILY 10/19/25 10/19/25 10/18/25 History methyl salicylate 30 %-menthol 10 1 applic topical QID PRN pain 10/19/25 10/19/25 Unknown History % topical cream (Icy Hot) semaglutide (weight loss) 0.25 0.25 mg SUBCUT Q7D 10/19/25 10/19/25 10/17/25 History mg/0.5 mL subcutaneous pen injector telmisartan 80 1 tab PO DAILY 10/19/25 10/19/25 10/18/25 History mg-hydrochlorothiazide 12.5 mg tablet vit C 226 mg-vit E 90 mg-copper 1 cap PO BID 10/19/25 10/19/25 10/18/25 History 0.8 mg-zinc oxide-lutein 5 mg capsule (PreserVision Lutein) Allergies Allergy/AdvReac Type Severity Reaction Status Date / Time MIRACLE Inhibitors Allergy Severe pancreatiti Verified 10/18/25 17:50 s atorvastatin (From Lipitor) Allergy Severe pancreatiti Verified 10/18/25 17:50 s Current Medications Generic Name Dose Route Start Last Admin Trade Name Freq PRN Reason Stop Dose Admin Sodium Chloride 1,000 mls @ 30 mls/hr 10/19/25 13:15 10/19/25 13:23 Sodium Chloride 0.9% IV 30 mls/hr .Q24H HANG Administration PFSH Acute PFSH: Medical History (Updated 10/19/25 @ 15:47 by Cm Rivera DPM) CKD (chronic kidney disease) Diabetic peripheral neuropathy associated with type 2 diabetes mellitus Diabetes Hyperlipidemia PVD (peripheral vascular disease) Surgical History (Updated 10/19/25 @ 13:49 by Miko Kimble MD) H/O heart artery stent Social History (Updated 10/19/25 @ 13:48 by Miko Kimble MD) Smoking and tobacco/nicotine status: former use of tobacco/nicotine Alcohol intake: never Substance/Drug Use: never Caregiver/support person: Yes Lives independently: Yes Housing: House Vitals/I&O/Wt Last Vital Signs Temp 97.9 F 10/19/25 15:05 Pulse 83 10/19/25 15:05 Resp 18 10/19/25 15:05 BP 101/66 10/19/25 15:05 Pulse Ox 94 10/19/25 15:05 O2 Del Method Nasal Cannula 10/19/25 15:32 O2 Flow Rate 2 10/19/25 15:05 10/19/25 10/19/25 10/19/25 06:59 14:59 22:59 Intake Total 300 / 300 Output Total 5 / 5 Balance 295 / 295 Weight last 48 hrs Weight 199 lb 6.4 oz Weight 200 lb Physical Exam Narrative: BELOW IS A FOCUSED LOWER EXTREMITY EXAM GENERAL: A&O x 3 VASCULAR: DP/PT pulses diminished with delayed capillary refill DERMATOLOGICAL: Right hallux has darkened discoloration, malodor with small area of underlying fluctuance and crepitus to distal aspect of hallux. Significant erythema and edema extending to the level of the first metatarsophalangeal joint. Findings consistent with wet gangrene of right hallux MUSCULOSKELETAL: Ankle joint and hindfoot range of motion within normal limits bilaterally. No tenderness with palpation of medial, lateral or anterior ankle bilaterally. No tenderness with palpation of lateral ankle ligaments bilaterally. No pain with palpation of midfoot bilaterally. 5/5 muscle strength in all 4 quadrants of the lower extremity when tested against resistance. NEUROLOGICAL: Neurological sensation to the affected foot and ankle is diminished to light touch IMAGING: Three-view x-rays of right foot taken in the emergency department were independently turbid by me. These show areas of radiolucency in the soft tissues of the distal hallux consistent with gas gangrene. Data 10/19/25 10:58 10/19/25 10:58 Micro: Microbiology 10/19/25 11:00 Blood Culture - Preliminary Blood SPECIMEN COLLECTED 10/19/25 11:00 Blood Culture - Preliminary Blood SPECIMEN COLLECTED A&P Assessment and plan 1. Wet gangrene: 2. Cellulitis: 3. 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 Taken to the OR from ER -Labs and vitals reviewed -WBC 10.3 -ESR 31 -CRP 62.1 - VSS -Cultures intraoperative cultures pending -Abx Vanco/Zosyn -Diet: Okay for diet -Status post right hallux amputation. Recommend arterial duplex ultrasound to evaluate vascular status for possible outpatient vascular referral. No further surgical intervention by podiatry during this admission. -Pain Mgmt: Per primary team -Weight bearing: As tolerated in postop shoe -Dressings: Surgical dressing to be left clean, dry, intact -Continue current Abx therapy until ID and Sensitivity results -Trend labs -Discharge plan: Patient is okay to discharge home from podiatry standpoint on oral antibiotics once culture and sensitivity has resulted and final antibiotic recommendations have been made. -Podiatry will continue to round on patient daily and provide recommendations PDMP PDMP Reviewed: Not Reviewed Coding Level of Care Code Acute Code for [facility] Fwd Diagnoses Wet gangrene I96 Cellulitis L03.90 Diabetic foot infection E11.628; L08.9
[2025-10-19] MEDS: piperacillin-tazobactam 3.375 GM in sodium chloride 0.9% (plus) 50 ML IV (17:22)
[2025-10-19] MEDS: heparin 5,000 unit/mL INJ 1 mL 5000 UNIT SUBCUT (17:22)
[2025-10-19 18:34] LABS: Estmated Average Glucose 171; Hemoglobin A1C 7.6 % (4.0-6.0)
[2025-10-19 18:38] LABS: Lactic Sepsis W/Reflex 1.1 mmol/L (0.5-2.2)
[2025-10-19 18:53] LABS: Procalcitonin 0.20 ng/mL (0-0.5); Thyroid Stimulating Hormone 0.92 uIU/mL (0.27-4.20); Vitamin B12 444 pg/mL (232-1245)
[2025-10-19 19:03] LABS: Iron 33 ug/dL (59-158); Total Iron Binding Capacity 191 mcg/dl; Unsaturated Iron Binding 158 ug/dL (112-347)
[2025-10-19 22:27] LABS: MRSA PCR OZH (swab) NOT DETECTED (Negative)
[2025-10-20] VITALS (7 sets, daily range): BP systolic 102–122; BP diastolic 58–73; PULSE 59–81; RESP 15–17; TEMP 36.4–37.1; O2SAT 91–98
[2025-10-20] MEDS: piperacillin-tazobactam 3.375 GM in sodium chloride 0.9% (plus) 50 ML IV ×3 (00:23→16:25)
[2025-10-20 03:57] LABS: Hematocrit 39.5 % (37-53); Hemoglobin 12.60 g/dL (11.27-16.99); Mean Corpuscular HGB Conc 31.9 g/dL (30-55); Mean Corpuscular Hemoglobin 30.5 pg (27-33); Mean Corpuscular Volume 95.6 fl (82-101); Nucleated Red Blood Cells % 0 %; Platelet Count 295 10^3/cmm (157-399); Red Blood Count 4.13 10^6/uL (3.85-5.65); White Blood Count 5.83 10^3/uL (3.29-11.43)
[2025-10-20 04:14] LABS: Alanine Aminotransferase 29 U/L (0-41); Albumin Level 3.3 g/dL (3.5-5.2); Alkaline Phosphatase 77 U/L (40-130); Anion Gap 18.1 (5-19); Aspartate Amino Transferase 25 U/L (0-40); Blood Urea Nitrogen 50 mg/dL (8-23); Calcium 9.0 mg/dL (8.5-10.5); Carbon Dioxide 22 mmol/L (22-29); Chloride 102 mmol/L (98-107); Globulin 3.9 g/dL (1.3-4.6); Glucose 142 mg/dL (65-115); Magnesium 2.7 mg/dL (1.7-2.3); Osmolality Calculated 300 mOsm/kg (285-295); Potassium 5.1 mmol/L (3.5-5.1); Sodium 137 mmol/L (136-145); Total Protein 7.2 g/dL (6.6-8.7)
[2025-10-20 04:16] LABS: Cholesterol 92 mg/dL (0-200); HDL Cholesterol 21 mg/dL (60-100); Triglycerides 111 mg/dL (0-150)
[2025-10-20 04:17] LABS: Procalcitonin 0.19 ng/mL (0-0.5)
[2025-10-20] MEDS: heparin 5,000 unit/mL INJ 1 mL 5000 UNIT SUBCUT ×2 (04:39→16:25)
[2025-10-20] MEDS: DAPAGLIFLOZIN 10 MG TABLET PO (04:39)
--- NOTE | 2025-10-20 11:16 | P.PN_ITS ---
Subjective 2 Subjective: Patient seen at bedside this morning. Resting comfortably. No overnight events. Status post right hallux amputation day 1. Pain is well-controlled Vitals/I&O/Wt Last Vital Signs Temp 97.5 F L 10/20/25 08:08 Pulse 68 10/20/25 08:08 Resp 17 10/20/25 08:08 BP 122/73 10/20/25 08:08 Pulse Ox 93 10/20/25 08:08 O2 Del Method Room Air 10/20/25 08:08 O2 Flow Rate 2 10/20/25 05:00 10/19/25 10/20/25 10/20/25 22:59 06:59 14:59 Intake Total 620 / 920 550 / 1470 360 / 360 Output Total 650 / 655 600 / 1255 Balance -30 / 265 -50 / 215 360 / 360 Weight last 48 hrs Weight 199 lb Weight 199 lb 6.4 oz Weight 200 lb Physical Exam 2 Narrative: BELOW IS A FOCUSED LOWER EXTREMITY EXAM GENERAL: A&O x 3 VASCULAR: DP/PT pulses diminished with delayed capillary refill DERMATOLOGICAL: Right foot surgical dressing clean, dry, intact. No strikethrough noted. MUSCULOSKELETAL: Ankle joint and hindfoot range of motion within normal limits bilaterally. No tenderness with palpation of medial, lateral or anterior ankle bilaterally. No tenderness with palpation of lateral ankle ligaments bilaterally. No pain with palpation of midfoot bilaterally. 5/5 muscle strength in all 4 quadrants of the lower extremity when tested against resistance. NEUROLOGICAL: Neurological sensation to the affected foot and ankle is diminished to light touch IMAGING: Three-view x-rays of right foot taken in the emergency department were independently turbid by me. These show areas of radiolucency in the soft tissues of the distal hallux consistent with gas gangrene. Data 10/20/25 03:17 10/20/25 03:17 Micro: Microbiology 10/19/25 11:00 Blood Culture - Preliminary Blood NEGATIVE TO DATE 10/19/25 11:00 Blood Culture - Preliminary Blood NEGATIVE TO DATE A&P Assessment and plan 1. Wet gangrene: 2. Cellulitis: 3. 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 Taken to the OR from ER -Labs and vitals reviewed -WBC 10.3 -ESR 31 -CRP 62.1 - VSS -Cultures intraoperative cultures pending ?Arterial duplex ultrasound reviewed -Abx Vanco/Zosyn -Diet: Okay for diet -Status post right hallux amputation. No further surgical intervention by podiatry during this admission. -The patient?s arterial Doppler study demonstrates adequate inflow through the femoropopliteal segments bilaterally, but with significantly reduced distal perfusion on the left, most notably a dorsalis pedis peak systolic velocity of 37 cm/sec, which is consistent with distal tibial and pedal-level arterial insufficiency. Although the patient currently has no wounds on the left lower extremity, his recent right hallux amputation for gangrene places him at elevated risk for future ischemic complications, and the presence of diminished distal perfusion warrants proactive vascular evaluation. Given these findings, outpatient referral to vascular surgery following hospital discharge is medically indicated to assess for progression of peripheral arterial disease, optimize limb perfusion, and reduce risk of future tissue loss. -Pain Mgmt: Per primary team -Weight bearing: As tolerated in postop shoe -Dressings: Surgical dressing to be left clean, dry, intact -Continue current Abx therapy until ID and Sensitivity results -Trend labs -Discharge plan: Patient is okay to discharge home from podiatry standpoint on oral antibiotics once culture and sensitivity has resulted and final antibiotic recommendations have been made. -Podiatry will continue to round on patient daily and provide recommendations PDMP PDMP Reviewed: Not Reviewed Attestations 2 Medical Necessity Statement*: See hospitalist note Coding Level of Care Code Acute Code for g Fwd Diagnoses Wet gangrene I96 Cellulitis L03.90 Diabetic foot infection E11.628; L08.9
--- NOTE | 2025-10-20 12:59 | P.PN_ITS ---
Subjective 2 Subjective: Patient doing well. Visiting with family. He has no complaints of pain. Appetite is good. Seen by Dr Rivera. Await culture results Vitals/I&O/Wt Last Vital Signs Temp 97.5 F L 10/20/25 11:04 Pulse 68 10/20/25 11:04 Resp 15 10/20/25 11:04 BP 105/58 10/20/25 11:04 Pulse Ox 93 10/20/25 11:04 O2 Del Method Room Air 10/20/25 11:04 O2 Flow Rate 2 10/20/25 05:00 10/19/25 10/20/25 10/20/25 22:59 06:59 14:59 Intake Total 620 / 920 550 / 1470 360 / 360 Output Total 650 / 655 600 / 1255 Balance -30 / 265 -50 / 215 360 / 360 Weight last 48 hrs Weight 90.265 kg Weight 90.446 kg Weight 90.718 kg Physical Exam 2 Narrative: General: No acute distress, AO x3 HEENT: PERRLA, pupils bilaterally equal and reactive Chest: Normal vesicular breath sounds, no added sounds, equal good air entry bilaterally CVS: S1-S2 regular, no murmurs, no tachycardia, no gallops, no rubs Abdomen: Soft, nontender, no organomegaly, bowel sounds present Neuro: No focal deficits, no facial deformity, AO x3, power 5/5 in all limbs Data 10/20/25 03:17 10/20/25 03:17 Micro: Microbiology 10/19/25 11:00 Blood Culture - Preliminary Blood NEGATIVE TO DATE 10/19/25 11:00 Blood Culture - Preliminary Blood NEGATIVE TO DATE A&P Assessment and plan 1. Diabetic foot infection: 2. CKD (chronic kidney disease): 3. Diabetic peripheral neuropathy associated with type 2 diabetes mellitus: Plan: Plan: 80-year-old gentleman past medical history of type 2 diabetes mellitus admitted to hospital with concern for diabetic foot infection and gangrene. Diabetic foot infection/gangrene: Podiatry consulted from the ER. Foot x-ray done in the ER does not show any bone or joint abnormality Patient underwent Right hallux amputation on 10/[address] Rivera for wet gangrene. Patient started on IV vancomycin and Zosyn - continue Await culture results and plan to discharge on PO antibiotics Hypertension: Goal blood pressure less than 140/90. Stable Type 2 diabetes mellitus: Check A1c. SSI, monitor closely for hypoglycemia CAD: No active issues Continue home dose of aspirin, Plavix and statin CKD: Do not have baseline creatinine recently. Creatinine in the past up to 1.4. Crestinine 1.9 on arrival and 1.7 today. Avoid nephrotoxins Monitor BMP daily. Famotidine for PUD prophylaxis Heparin 5000 every 12 hours for DVT prophylaxis Discussed with patient and family Discussed with care team members PDMP PDMP Reviewed: Not Reviewed Attestations 2 Medical Necessity Statement*: Admission for more than 2 midnights for management of diabetic foot infection with concern for gangrene requiring amputation, antibiotics, type of diabetes mellitus with CKD Coding Level of Care Code 40778 Diagnoses Diabetic foot infection E11.628; L08.9 CKD (chronic kidney disease) N18.9 Diabetic peripheral neuropathy associated with type 2 diabetes mellitus E11.42
--- NOTE | 2025-10-20 23:45 | CTR_ITS ---
PROCEDURE INFORMATION: Exam: CT Head Without Contrast Exam date and time: 10/20/2025 11:55 PM Age: 80 years old Clinical indication: Injury or trauma; Blunt trauma (contusions or hematomas); Reported unwitnessed inpatient fall. ; Additional info: AMS, reported fall TECHNIQUE: Imaging protocol: Computed tomography of the head without contrast. Radiation optimization: All CT scans at this facility use at least one of these dose optimization techniques: automated exposure control; mA and/or kV adjustment per patient size (includes targeted exams where dose is matched to clinical indication); or iterative reconstruction. COMPARISON: No relevant prior studies available. RADIATION DOSE METRICS: Total DLP (mGy-cm): 1072.28 FINDINGS: Brain: Chronic small-vessel ischemic change. Few lacunar foci in the basal ganglia, nonspecific although commonly chronic. Cerebral ventricles: Involutional changes of the ventricles and sulci, [id number]. Paranasal sinuses: Visualized sinuses are unremarkable. No fluid levels. Mastoid air cells: Visualized mastoid air cells are well aerated. Bones: Vertebral and carotid atheromatous vascular calcifications. Soft tissues: Unremarkable. CT/CT head wo con* [id number] IMPRESSION: No acute intracranial abnormality.
[2025-10-21] VITALS (8 sets, daily range): BP systolic 98–108; BP diastolic 61–72; PULSE 65–90; RESP 14–17; TEMP 36.4–37; O2SAT 94–98
--- NOTE | 2025-10-21 00:23 | P.PN_ITS ---
Subjective 2 Subjective: 80-year-old male reported unwi tnessed fall denied head injury but he was noted by nurse to have right eye droop and droop of his right mouth. Nga BUSTAMANTE called me to evaluate him. Patient was earlier noted to not be confused but had confusion this evening new to her evaluation. Vitals/I&O/Wt Last Vital Signs Temp 97.6 F 10/20/25 23:55 Pulse 67 10/20/25 23:55 Resp 17 10/20/25 23:55 BP 111/72 10/20/25 23:55 Pulse Ox 92 10/20/25 23:55 O2 Del Method Room Air 10/20/25 23:55 O2 Flow Rate 2 10/20/25 05:00 10/20/25 10/20/25 10/21/25 14:59 22:59 06:59 Intake Total 1178.5 / 1178.5 540 / 1718.5 Balance 1178.5 / 1178.5 540 / 1718.5 Weight last 48 hrs Weight 90.265 kg Weight 90.446 kg Weight 90.718 kg Physical Exam 2 Narrative: General Well-developed obese male in no acute cardiopulmonary stress Oropharynx Mallampati 3 supine CV regular rate and rhythm Lungs clear Neuro he has mild right hide not opening is much as left he has slight tongue deviation on protrusion to the right face is symmetric on smile. Head turn to the left and right with equal strength. Motor strength is equal 5/5 bilateral handgrips biceps triceps. Right ankle dorsiflexion and extension 5-/5 versus 5/5 on the left. Right leg straight leg lift he has 5-/5 but is able to keep his leg leg up for 10 seconds. Left leg he has 5/5 strength and able to keep it up for 10 seconds easily Extremities right foot in a Steven wrap and right hey looks obviously missing. I did not undress his foot dressing Data 10/20/25 03:17 10/20/25 03:17 Micro: Microbiology 10/19/25 14:20 Gram Stain - Final Toe - #1 10/19/25 11:00 Blood Culture - Preliminary Blood NEGATIVE TO DATE 10/19/25 11:00 Blood Culture - Preliminary Blood NEGATIVE TO DATE CT Head: Radiologist's impression: MPRESSION: No acute intracranial abnormality. A&P Assessment and plan 1. TIA (transient ischemic attack): This is already rapidly improving and resolving. Will order neurochecks. I do not know him previously but he has had decreasing deficits in the 10 to 15 minutes that it was noticed and then my evaluation. I do not think he is a candidate for thrombolysis due to limited symptoms. Patient is already on aspirin and Plavix and received those today 10/20/2025 Place patient on telemetry and order an echocardiogram as I do not see that he has had [address] scan without contrast shows no bleed or obvious stroke Patient denies headache or injury to his head states he did not fall but rather layed down but got up on his own PDMP PDMP Reviewed: Not Reviewed Attestations 2 Medical Necessity Statement*: Patient remains in the hospital and will require greater than 2 midnights Coding Level of Care Code 46980 Diagnoses TIA (transient ischemic attack) G45.9 Time Spent (min) 40
--- NOTE | 2025-10-21 00:23 | PC.NURSE ---
Event SHIRLEY Mancia rounded on patient on 10/20/25 at 2335 and found patient lying in bed with IV out and IV fluids on floor. Patient reported to Blanche that he had gotten out of bed on his own and accidentally pulled IV out. Blanche reported to this nurse that patient had pulled IV out and seemed confused as he was telling her about fish over there and wasn't quite making sense. This nurse went to assess patient. Patient resting in bed without apparent distress. This nurse asked patient if he had gotten out of bed without assistance. Patient reports that I got up because I was lost. I had this computer thing and I got lost. Patient right eye initially closed and was able to open it upon command, no lip droop but slight right eye droop noted. Shopping Inspector equal and pupils PERRLA. Patient A&O x3, unable to state location correctly. Patient also reported that he had fallen while getting up to the bathroom and then gotten back to bed without assistance. Patient also stated well, I just slid down and lay on the floor, I was real careful with my bad foot. Patient reports that he did not hit his head. Dr. Dougherty on floor at this time, notified by nursing of patient confusion, possible slight right sided eye droop, and reported unwitnessed fall. Dr. Dougherty assessed patient and ordered STAT head CT without contrast. Vital signs stable, see charting. BG WNL. IV replaced by SHIRLEY Mancia. Patient to CT at 2345 with SHIRLEY Mancia and YUE Hood. Patient back to floor at 0010. Bed alarm set for patient safety. This nurse attempted to notify patient's , Guerda, of patient reported fall and event but no answer. Voice message left to call this nurse back.
[2025-10-21] MEDS: heparin 5,000 unit/mL INJ 1 mL 5000 UNIT SUBCUT ×2 (03:50→15:47)
[2025-10-21 04:24] LABS: Hematocrit 38.7 % (37-53); Hemoglobin 12.60 g/dL (11.27-16.99); Mean Corpuscular HGB Conc 32.6 g/dL (30-55); Mean Corpuscular Hemoglobin 31.0 pg (27-33); Mean Corpuscular Volume 95.1 fl (82-101); Nucleated Red Blood Cells % 0 %; Platelet Count 265 10^3/cmm (157-399); Red Blood Count 4.07 10^6/uL (3.85-5.65); White Blood Count 8.88 10^3/uL (3.29-11.43)
[2025-10-21 04:43] LABS: Alanine Aminotransferase 27 U/L (0-41); Albumin Level 3.4 g/dL (3.5-5.2); Alkaline Phosphatase 74 U/L (40-130); Anion Gap 17.5 (5-19); Aspartate Amino Transferase 24 U/L (0-40); Blood Urea Nitrogen 38 mg/dL (8-23); Calcium 8.8 mg/dL (8.5-10.5); Carbon Dioxide 23 mmol/L (22-29); Chloride 104 mmol/L (98-107); Creatinine Clr Calc Pharmacy 49.4526; Globulin 2.9 g/dL (1.3-4.6); Glucose 130 mg/dL (65-115); Magnesium 2.4 mg/dL (1.7-2.3); Osmolality Calculated 301 mOsm/kg (285-295); Potassium 4.5 mmol/L (3.5-5.1); Sodium 140 mmol/L (136-145); Total Protein 6.3 g/dL (6.6-8.7)
[2025-10-21] MEDS: piperacillin-tazobactam 3.375 GM in sodium chloride 0.9% (plus) 50 ML IV ×3 (05:57→23:43)
[2025-10-21] MEDS: fluticasone nasal spray 16gm Btl 2 SPRAY INTRANASAL (05:58)
[2025-10-21] MEDS: DAPAGLIFLOZIN 10 MG TABLET PO (05:59)
--- NOTE | 2025-10-21 06:05 | PC.NURSE ---
This nurse attempted to call patient's again at this time to provide update regarding patient reported fall and changes in mentation over the night. Patient did not answer, voice message left to call the med-surg floor back with number provided. Patient's daughter is also listed as a contact but the number is the same as patient's .
--- NOTE | 2025-10-21 08:00 | USCV_ITS ---
Noe Pappas Age: 80 Gender: M : 1945 Exam Date: 10/21/2025 08:13 Ordering Phys: Royal Dougherty MD Technologist: JOANNE Exam Location: [facility] – [place] Indication: tia BP: 98 / 67 HR: 58 Rhythm: Sinus Technical Quality: Adequate MEASUREMENTS (Male / Female) Normal Values 2D ECHO LV Diastolic Diameter PLAX 4.7 cm 4.2 - 5.9 / 3.9 - 5.3 cm IVS Diastolic Thickness 0.7 cm 0.6 - 1.0 / 0.6 - 0.9 cm IVS Systolic Thickness 1.3 cm LVPW Diastolic Thickness 0.8 cm 0.6 - 1.0 / 0.6 - 0.9 cm LVPW Systolic Thickness 1.1 cm LVOT Diameter 2.0 cm LV Ejection Fraction 2D Teich 57.5 % LV Ejection Fraction MOD 4C 66.6 % LV Ejection Fraction MOD 2C 60.5 % LV Ejection Fraction 2C AL 61.8 % LA Diameter 3.5 cm RA Systolic Volume 4C AL 28.2 ml RA Systolic Volume 4C MOD 27.6 ml LA Sys Volume AL 34.2 cm cubed LA Sys Volume Index AL 16.2 cm cubed/m squared Aorta at Sinotubular Diameter 2.7 cm IVC Diameter 1.4 cm M-MODE LA Ao Ratio MM 1.2 AV Cusp Separation MM 1.3 cm DOPPLER AV Peak Velocity 220.0 cm/s LVOT Peak Velocity 87.0 cm/s AV Area Cont Eq vti 1.1 cm squared AV Area Cont Eq pk 1.3 cm squared MV Peak Velocity 110.0 cm/s MV Area PHT 2.8 cm squared Mitral E to A Ratio 1.1 TV Peak Velocity 251.5 cm/s TR Peak Velocity 271.0 cm/s TR Peak Gradient 29.4 mmHg TR Mean Velocity 195.0 cm/s TR Mean Gradient 17.3 mmHg TR Velocity Time Integral 59.1 cm PV Peak Velocity 85.0 cm/s RV Ejection Time 0.4 s FINDINGS Left Ventricle Normal left ventricular size, systolic function and wall thickness with no regional wall motion abnormality. Left ventricular ejection fraction is 60%. Normal left ventricular diastolic function. Right Ventricle Normal right ventricular size and systolic function. Right Atrium Normal right atrial size. Left Atrium Normal left atrial size. IA Septum Normal appearance of the interatrial septum. Mitral Valve Normal mitral valve structure. No mitral valve stenosis or regurgitation. Aortic Valve Moderate aortic valve calcification. Moderate aortic valve stenosis. ROMERO 1.3 cm2. LVOT/AoV velocity ratio 0.39. No aortic valve regurgitation. Tricuspid Valve Normal tricuspid valve structure. Trace regurgitation. Normal pulmonary pressure. Pulmonic Valve Normal pulmonic valve structure. No pulmonic valve stenosis or regurgitation. Pericardium No pericardial effusion. Aorta Normal diameter of the aortic root and ascending thoracic aorta. IVC Normal IVC diameter. CONCLUSIONS Normal left ventricular size, systolic function and wall thickness with ejection fraction of 60%. Normal right ventricular size and systolic function. Moderate aortic valve stenosis. Nicola Angeles MD, FACC (Electronically Signed) Final Date: 21 October 2025 16:34 S
--- NOTE | 2025-10-21 08:00 | USR_ITS ---
PROCEDURE INFORMATION: Exam: US Duplex Bilateral Extracranial Arteries; Complete; Carotid Arteries Exam date and time: 10/21/2025 7:51 AM Age: 80 years old Clinical indication: TIA TECHNIQUE: Imaging protocol: Real-time duplex ultrasound scan of the bilateral extracranial arteries combining armstrong scale, color Doppler and spectral waveform analysis with image documentation. Complete exam. Exam focused on the carotid arteries. COMPARISON: CT head wo con* [id number] 10/20/2025 11:55 PM FINDINGS: RIGHT: The peak systolic velocity within the proximal common carotid artery is 78 cm/s. The peak systolic velocity within the mid common carotid artery is 82 cm/s. The peak systolic velocity within the distal common carotid artery is 70 a cm/s. The peak systolic velocity within the proximal internal carotid artery is 37 cm/s. The peak systolic velocity within the mid internal carotid artery is 39 cm/s. The peak systolic velocity within the distal internal carotid artery is 42 cm/s. The peak systolic velocity within the vertebral artery is 34 cm/s. Anterograde blood flow in the vertebral artery. LEFT: The peak systolic velocity within the proximal common carotid artery is 96 cm/s. The peak systolic velocity within the mid common carotid artery is 82 cm/s. The peak systolic velocity within the distal common carotid artery is 71 cm/s. The peak systolic velocity within the proximal internal carotid artery is 59 cm/s. The peak systolic velocity within the mid internal carotid artery is 49 cm/s. The peak systolic velocity within the distal internal carotid artery is 29 cm/s. The peak systolic velocity within the vertebral artery is 52 cm/s. Anterograde blood flow in the vertebral artery. US/CV carotid duplex BI* [id number] IMPRESSION: No carotid stenosis is identified. REFERENCES: SRU CRITERIA. The degree of internal carotid artery stenosis is based on criteria defined by the Society of Radiologists in Ultrasound (SRU). Normal is no stenosis. Mild is less than 50% stenosis. Moderate is 50-69% stenosis. Severe is greater than 69% stenosis to near occlusion. Near occlusion is a markedly narrowed lumen. Total occlusion is no detectable patent lumen. Brayan Ruelas et al. Carotid Artery Stenosis: Armstrong-Scale and Doppler US Diagnosis-Society of Radiologists in Ultrasound Consensus Conference. Radiology 2003; 229:340-346.
--- NOTE | 2025-10-21 16:02 | P.PN_ITS ---
Subjective 2 Subjective: Overnight events noted- patient had a fall and noted to have mild confusion which has resolved. CT head obtained and unremarkable Vitals/I&O/Wt Last Vital Signs Temp 97.6 F 10/21/25 05:00 Pulse 72 10/21/25 12:00 Resp 15 10/21/25 12:00 BP 101/61 10/21/25 12:00 Pulse Ox 98 10/21/25 12:00 O2 Del Method Room Air 10/21/25 12:00 O2 Flow Rate 2 10/20/25 05:00 10/21/25 10/21/25 10/21/25 06:59 14:59 22:59 Intake Total 240 / 1958.5 50 / 50 Output Total 200 / 600 Balance 40 / 1358.5 50 / 50 Weight last 48 hrs Weight 90.265 kg Weight 90.265 kg Physical Exam 2 Narrative: General: No acute distress, AO x3 HEENT: PERRLA, pupils bilaterally equal and reactive Chest: Normal vesicular breath sounds, no added sounds, equal good air entry bilaterally CVS: S1-S2 regular, no murmurs, no tachycardia, no gallops, no rubs Abdomen: Soft, nontender, no organomegaly, bowel sounds present Neuro: No focal deficits, no facial deformity, AO x3, power 5/5 in all limbs Data 10/21/25 03:52 10/21/25 03:52 Micro: Microbiology 10/19/25 14:20 Gram Stain - Final Toe - #1 Anaerobic Culture - Preliminary Wound Culture - Preliminary Strep agalactiae - (group b) 10/19/25 11:00 Blood Culture - Preliminary Blood NEGATIVE TO DATE 10/19/25 11:00 Blood Culture - Preliminary Blood NEGATIVE TO DATE A&P Assessment and plan 1. Diabetic foot infection: Diabetic foot infection/gangrene: Podiatry consulted from the ER. Foot x-ray done in the ER does not show any bone or joint abnormality Patient underwent Right hallux amputation on 10/[address] Rivera for wet gangrene. Patient started on IV vancomycin and Zosyn - continue Await culture results and plan to discharge on PO antibiotics 2. CKD (chronic kidney disease): Crestinine 1.9 on arrival and 1.7 today. Avoid nephrotoxins Monitor BMP daily. Creatinine 1.3 today 3. TIA (transient ischemic attack): Fall last night with mild confusion noted- evaluated by clarifier operator helper. Resolved CT head unremarkable Carotid doppler no stenosis Echo ordered and pending Patient on aspirin and plavix- continue Telemetry 4. Diabetic peripheral neuropathy associated with type 2 diabetes mellitus: on home meds of neurontin Plan: DVT prophylaxis- sq heparin GI prophylaxis- pepcid Code status- Full Discussed with care team members PDMP PDMP Reviewed: Not Reviewed Attestations 2 Medical Necessity Statement*: Admission for more than 2 midnights for management of diabetic foot infection with concern for gangrene requiring amputation, antibiotics, type of diabetes mellitus with CKD Coding Level of Care Code 27325 Diagnoses Diabetic foot infection E11.628; L08.9 CKD (chronic kidney disease) N18.9 TIA (transient ischemic attack) G45.9 Diabetic peripheral neuropathy associated with type 2 diabetes mellitus E11.42
--- NOTE | 2025-10-21 17:27 | PHA.VACGOAL ---
Vancomycin Goal - Goal Vancomycin Goal:: 10-15 mg/L Vancomycin Indication:: SSTI - Therapy Current therapy:: Pip/Tazo Day of therpy:: Day []of [] . Actual body weight (kg): 90.265 kg - Data Labs: WBC 8.88 10^3/uL (3.29-11.43) 10/21/25 03:52 RBC 4.07 10^6/uL (3.85-5.65) 10/21/25 03:52 Hgb 12.60 g/dL (11.27-16.99) 10/21/25 03:52 Hct 38.7 % (37-53) 10/21/25 03:52 MCV 95.1 fl (82-101) 10/21/25 03:52 MCH 31.0 pg (27-33) 10/21/25 03:52 MCHC 32.6 g/dL (30-55) 10/21/25 03:52 RDW 14.2 % (12.1-15.1) 10/21/25 03:52 Sodium 140 mmol/L (136-145) 10/21/25 03:52 Potassium 4.5 mmol/L (3.5-5.1) 10/21/25 03:52 Chloride 104 mmol/L (98-107) 10/21/25 03:52 Carbon Dioxide 23 mmol/L (22-29) 10/21/25 03:52 Anion Gap 17.5 (5-19) 10/21/25 03:52 BUN 38 mg/dL (8-23) H 10/21/25 03:52 Creatinine 1.3 mg/dL (0.7-1.2) H 10/21/25 03:52 GFR Calculation Not Reportable 10/21/25 03:52 Treatment plan:: new consult Regimen:: New start vancomycin for Cellulitis. No prior vancomycin history found. Started on maintenance dose of 1250 mg q24h. Scr trending down to 1.3 mg/dL. Vancomycin trough timed for @1600 on 10/22. Laboratory Tests 10/19/25 10/20/25 10/21/25 10:58 03:17 03:52 Creatinine 1.9 H 1.7 H 1.3 H
[2025-10-22] VITALS: BP 110/65; PULSE 75; RESP 16; TEMP 36.7; O2SAT 96
[2025-10-22] MEDS: DAPAGLIFLOZIN 10 MG TABLET PO (04:54)
[2025-10-22] MEDS: heparin 5,000 unit/mL INJ 1 mL 5000 UNIT SUBCUT (04:54)
[2025-10-22] MEDS: fluticasone nasal spray 16gm Btl 2 SPRAY INTRANASAL (05:00)
[2025-10-22 05:42] LABS: Hematocrit 42.5 % (37-53); Hemoglobin 13.60 g/dL (11.27-16.99); Mean Corpuscular HGB Conc 32.0 g/dL (30-55); Mean Corpuscular Hemoglobin 30.7 pg (27-33); Mean Corpuscular Volume 95.9 fl (82-101); Nucleated Red Blood Cells % 0 %; Platelet Count 294 10^3/cmm (157-399); Red Blood Count 4.43 10^6/uL (3.85-5.65); White Blood Count 8.58 10^3/uL (3.29-11.43)
[2025-10-22 06:00] VITALS: BP 91/58; PULSE 70; PULSE 93; RESP 16; TEMP 36.9; O2SAT 95
[2025-10-22 06:01] LABS: Alanine Aminotransferase 27 U/L (0-41); Albumin Level 3.5 g/dL (3.5-5.2); Alkaline Phosphatase 77 U/L (40-130); Anion Gap 14.4 (5-19); Aspartate Amino Transferase 22 U/L (0-40); Blood Urea Nitrogen 29 mg/dL (8-23); Calcium 9.6 mg/dL (8.5-10.5); Carbon Dioxide 24 mmol/L (22-29); Chloride 104 mmol/L (98-107); Creatinine Clr Calc Pharmacy 49.4526; Globulin 3.8 g/dL (1.3-4.6); Glucose 78 mg/dL (65-115); Magnesium 2.2 mg/dL (1.7-2.3); Osmolality Calculated 291 mOsm/kg (285-295); Potassium 4.4 mmol/L (3.5-5.1); Sodium 138 mmol/L (136-145); Total Protein 7.3 g/dL (6.6-8.7)
[2025-10-22 07:25] VITALS: BP 95/56; PULSE 85; RESP 16; TEMP 36.6; O2SAT 92
[2025-10-22] MEDS: piperacillin-tazobactam 3.375 GM in sodium chloride 0.9% (plus) 50 ML IV (08:37)
--- NOTE | 2025-10-22 10:56 | PC.NURSE ---
Wound/Ostomy Nurse Rounds @ [id number] gave patient stroke education book
[2025-10-22 11:40] VITALS: BP 115/74; PULSE 85; RESP 17; TEMP 36.4; O2SAT 94
--- NOTE | 2025-10-22 12:12 | PC.SOCIAL ---
IMM Update pg 2 of IMM updated and reviewed w/ patient. Copy provided and copy dated, initialed and placed in chart.
[2025-10-22 14:31] VITALS: BP 115/74; PULSE 85; O2SAT 94
--- NOTE | 2025-10-22 16:11 | PC.OT ---
OT EVALUATION ORDERS RECEIVED. PATIENT D/C BEFORE EVALUATION COULD BE COMPLETED.
--- NOTE | 2025-10-22 19:12 | PM.MISC ---
Miscellaneous Note Purpose of Documentation: Chart Was reviewed to make abx recommendations today. Noe Pappas is a 80 year old male with past medical history of type 2 diabetes mellitus hyperlipidemia, CAD presented to the ER on 10/19 because of change in the color of his great toe along with pain. He was diagnosed with wet gangrene and underwent right hallux amputation on 10/19. Wound cx showed group B strep. Blood cx was negative. I was contacted by Dr. Sweeney for abx recommendations this afternoon. Since patient has achieved adequate source control, he may be transitioned to oral Augmentin 875 mg BID for the next 5 days while the wound has time to heal.
--- NOTE | 2025-10-22 19:49 | P.DS_ITS ---
Discharge Providers Date of Admission: 10/19/25 13:30 Date of Discharge: October 22, 2025 Attending Provider at Admission: Miko Kimble MD Attending Provider at Discharge: Prisca Sweeney MD Primary Care Provider: Stanislav Gomes DO Diagnoses at Discharge Discharge Diagnosis 1. Diabetic peripheral neuropathy associated with type 2 diabetes mellitus: 2. Diabetic foot infection: 3. CKD (chronic kidney disease): 4. TIA (transient ischemic attack): Reason for Visit Reason for Visit: Rt big toe inj Brief History: As per the retrospective notes of the admitting physician: Noe Pappas is a 80 year old male with past medical history of type 2 diabetes mellitus hyperlipidemia, CAD post PCI presents to the ER today because of change in the color of his great toe along with pain which has been getting worse over the last 1 week. Patient states he woke up 1 week ago with pain and still for which he went to his primary care provider and was started on oral antibiotics but over the last few days the color of the toe has been changing hence he presented to the ER today. In the ER, He was and showed seen by podiatry team he was diagnosed diabetic foot infection along with signs for gangrene which he has been taken to the OR. 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 His labs were reviewed and his inflammatory markers were mildly high. He was started on vancomycin and Zosyn. He also underwent Doppler study that demonstrated adequate inflow but significantly reduced distal perfusion on the left. During hospital stay there was concern of patient being confused overnight therefore differential diagnosis of TIA was considered and further workup was done with CT head, carotid Doppler and echo. Since as per his presentation and at that time window he was not eligible for thrombolytics as per the retrospective documentation review. He was already on aspirin and Plavix therefore it was continued. His CT head was unremarkable for any acute stroke and carotid Doppler did not show any significant stenosis. Echo showed normal left ventricular size and ejection fraction of 60%. For detailed report refer to the echo section. Patient wound culture showed strep agalactiae sensitive to ampicillin. ID was taken on board since the patient had right hallux gangrene. And suggested for Augmentin. Patient discharged on Augmentin and with follow-up with ID and podiatry. Medications were reconciled after confirmation and according to patient comorbidities and appropriate follow-ups and referrals were provided at the time of discharge. Patient condition has been discussed at length with the patient/family, I have independently reviewed the chart labs imaging/diagnostics/EKG. the goals of care and code status with the patient/family/NOK/legal phlebotomy services representative, and documented accordingly. The management has been done according to the current clinical condition with respect to patient goals of care and based on recommendations/guidelines. The patient/family has been informed about the current condition and further plan of care. Agreed with the plan of care and understood without any language barrier. Every effort was made to ensure accuracy of liquor runner. Any obvious errors or omissions should be clarified with the author of the document. Physical Exam Narrative: General: Alert and oriented, lying comfortably without any distress HEENT: Normocephalic, atraumatic, grossly unremarkable exam Cardio: normal rate rhythm, normal S1-S2 without any murmurs, rubs, or gallops and JVD normal Respiratory: normal vascular breathing on auscultation without any wheezes, stridor, rhonchi GI: Abdomen soft, nontender, nondistended, normoactive bowel sounds present all 4 quadrants, Neuro: intact cranial nerves motor and sensory and cerebellar/coordination function without any focal neurological deficit Behavior: Appropriate and cooperative Extremities: Adequate palpable pulses, patient's status post right hallux amputation, covered with dressing no signs of cellulitis along the margins of the dressings were appreciated Discharge Data Studies Completed and Pending Completed Studies During Hospitalization Category Date Time Status CT head wo con* [id number] Stat Cat Scan 10/20/25 23:45 Completed XR foot RT min 3V* [id number] Stat Exams 10/19/25 10:40 [place] [id number] Routine Ultrasound 10/19/25 14:36 Completed CV carotid duplex BI* [id number] Routine Ultrasound 10/21/25 08:00 Completed CV. echo complete* [id number] Routine Ultrasound 10/21/25 08:00 Completed Pending at discharge Category Date Time Status Anaerobic Culture Routine Lab 10/19/25 14:20 Results Bacterial Antigen Stat Lab 10/19/25 13:33 Ordered Blood Culture Stat Lab 10/19/25 11:00 Results Wound Culture and Gram Stain Routine Lab 10/19/25 14:20 Results Pathology: Surgical [PTH] Routine Pth 10/19/25 14:25 Received Radiology Impressions Foot X-Ray 10/19/25 10:40 IMPRESSION: Soft tissue abnormality without acute bone or joint abnormality. Duplex Scan Lower Extremity Artery 10/19/25 14:36 IMPRESSION: No definitive sonographic evidence of high-grade stenosis by peak systolic velocity criteria. Incidentals as above. Head CT 10/20/25 23:45 IMPRESSION: No acute intracranial abnormality. Carotid Doppler Study 10/21/25 08:00 IMPRESSION: No carotid stenosis is identified. REFERENCES: SRU CRITERIA. The degree of internal carotid artery stenosis is based on criteria defined by the Society of Radiologists in Ultrasound (SRU). Normal is no stenosis. Mild is less than 50% stenosis. Moderate is 50-69% stenosis. Severe is greater than 69% stenosis to near occlusion. Near occlusion is a markedly narrowed lumen. Total occlusion is no detectable patent lumen. Brayan Ruelas et al. Carotid Artery Stenosis: Armstrong-Scale and Doppler US Diagnosis-Society of Radiologists in Ultrasound Consensus Conference. Radiology 2003; 229:340-346. Laboratory Results WBC 8.58 10^3/uL (3.29-11.43) 10/22/25 04:42 RBC 4.43 10^6/uL (3.85-5.65) 10/22/25 04:42 Hgb 13.60 g/dL (11.27-16.99) 10/22/25 04:42 Hct 42.5 % (37-53) 10/22/25 04:42 MCV 95.9 fl (82-101) 10/22/25 04:42 MCH 30.7 pg (27-33) 10/22/25 04:42 MCHC 32.0 g/dL (30-55) 10/22/25 04:42 RDW 14.3 % (12.1-15.1) 10/22/25 04:42 Plt Count 294 10^3/cmm (157-399) 10/22/25 04:42 MPV 9.8 fL (7.4-10.4) 10/22/25 04:42 Neut % (Auto) 54.9 % 10/22/25 04:42 Lymph % (Auto) 31.5 % 10/22/25 04:42 Posey % (Auto) 8.5 % 10/22/25 04:42 Eos % (Auto) 4.0 % 10/22/25 04:42 Baso % (Auto) 0.8 % 10/22/25 04:42 Neut # (Auto) 4.71 10^3/uL (1.8-7.7) 10/22/25 04:42 Lymph # (Auto) 2.7 10^3/uL (0.8-4.8) 10/22/25 04:42 Posey # (Auto) 0.7 10^3/uL (0.2-0.9) 10/22/25 04:42 Eos # (Auto) 0.3 10^3/uL (0.0-0.8) 10/22/25 04:42 Baso # (Auto) 0.1 10^3/uL (0.0-0.1) 10/22/25 04:42 Nucleated RBC % (auto) 0 % 10/22/25 04:42 Nucleated RBCs # 0.0 /100WBC 10/22/25 04:42 ESR 31 mm/hr (0-10) H 10/19/25 10:58 PT 14.70 SECONDS (12.1-14.9) 10/19/25 10:58 INR 1.07 (0.8-1.2) 10/19/25 10:58 APTT 30.1 SECONDS (23.9-36.7) 10/19/25 10:58 Sodium 138 mmol/L (136-145) 10/22/25 04:42 Potassium 4.4 mmol/L (3.5-5.1) 10/22/25 04:42 Chloride 104 mmol/L (98-107) 10/22/25 04:42 Carbon Dioxide 24 mmol/L (22-29) 10/22/25 04:42 Anion Gap 14.4 (5-19) 10/22/25 04:42 BUN 29 mg/dL (8-23) H 10/22/25 04:42 Creatinine 1.3 mg/dL (0.7-1.2) H 10/22/25 04:42 GFR Calculation Not Reportable 10/22/25 04:42 Glucose 78 mg/dL (65-115) 10/22/25 04:42 POC Glucose 184 mg/dL (70-110) H 10/22/25 11:31 Estimat Average Glucose 171 10/19/25 16:30 Hemoglobin A1c 7.6 % (4.0-6.0) H 10/19/25 16:30 Calculated Osmolality 291 mOsm/kg (285-295) 10/22/25 04:42 Lactic Acid 1.1 mmol/L (0.5-2.2) 10/19/25 16:30 Calcium 9.6 mg/dL (8.5-10.5) 10/22/25 04:42 Phosphorus 3.3 mg/dL (2.5-4.5) 10/22/25 04:42 Magnesium 2.2 mg/dL (1.7-2.3) 10/22/25 04:42 Iron 33 ug/dL (59-158) L 10/19/25 16:30 TIBC 191 mcg/dl 10/19/25 16:30 % Saturation 17.2 % (20-50) L 10/19/25 16:30 Unsat Iron Binding 158 ug/dL (112-347) 10/19/25 16:30 Total Bilirubin 0.6 mg/dL (0.15-1.2) 10/22/25 04:42 AST 22 U/L (0-40) 10/22/25 04:42 ALT 27 U/L (0-41) 10/22/25 04:42 Alkaline Phosphatase 77 U/L (40-130) 10/22/25 04:42 C-Reactive Protein 62.1 mg/L (0.0-4.9) H 10/19/25 10:58 Total Protein 7.3 g/dL (6.6-8.7) 10/22/25 04:42 Albumin 3.5 g/dL (3.5-5.2) 10/22/25 04:42 Globulin 3.8 g/dL (1.3-4.6) 10/22/25 04:42 Triglycerides 111 mg/dL (0-150) 10/20/25 03:17 Cholesterol 92 mg/dL (0-200) 10/20/25 03:17 LDL Cholesterol, Calc 49 mg/dL (50-129) L 10/20/25 03:17 HDL Cholesterol 21 mg/dL (60-100) L 10/20/25 03:17 LDL/HDL Ratio 2.33 RATIO (0.00-3.22) 10/20/25 03:17 Cholesterol/HDL Ratio 4.38 mg/dL (1.0-5.00) 10/20/25 03:17 Vitamin B12 444 pg/mL (232-1245) 10/19/25 16:30 Folate 12.4 ng/mL (4.5-32.2) 10/20/25 03:17 Procalcitonin 0.19 ng/mL (0-0.5) 10/20/25 03:17 TSH 0.92 uIU/mL (0.27-4.20) 10/19/25 16:30 Nasal MRSA (PCR) Not detected (Negative) 10/19/25 21:11 Vitals Last Vital Signs Temp 97.5 F L 10/22/25 11:40 Pulse 85 10/22/25 14:31 Resp 17 10/22/25 11:40 BP 115/74 10/22/25 14:31 Pulse Ox 94 10/22/25 14:31 O2 Del Method Room Air 10/22/25 11:40 O2 Flow Rate 2 10/20/25 05:00 Discharge Plan Discharge Patient Disposition: Home Condition: Stable Prescriptions: New amoxicillin-pot clavulanate [Augmentin] 500-125 mg tablet 1 tab PO BID 5 Days Qty: 10 0RF Continued Benadryl Itch Cooling 2-0.1 % aerosol,spray 1 spray topical QID PRN (Reason: skin irritation) Qty: 59 0RF gabapentin 300 mg capsule 900 mg PO TID Qty: 810 3RF febuxostat 80 mg tablet 80 mg PO DAILY Qty: 90 3RF atorvastatin 40 mg Tablet 40 mg PO QPM clopidogrel 75 mg Tablet 75 mg PO DAILY aspirin 81 mg Tablet,Delayed Release (Dr/Ec) 81 mg PO DAILY famotidine 20 mg Tablet 20 mg PO BID glimepiride 4 mg Tablet 8 mg PO QAM Rx Instructions: administer with breakfast allopurinol 300 mg Tablet 300 mg PO DAILY ketoconazole 2 % Cream 1 applic TOPICAL BID PRN (Reason: red/flaking areas ) fluticasone propionate 50 mcg/actuation [place],Suspension 2 spray INTRANASAL DAILY Rx Instructions: administer into each nostril PreserVision Lutein 226-90-0.8-5 mg Capsule 1 cap PO BID Icy Hot 30-10 % Cream 1 applic TOPICAL QID PRN (Reason: pain) cholecalciferol (vitamin D3) [Vitamin D3] 50 mcg (2,000 unit) Tablet 50 mcg PO DAILY empagliflozin 25 mg Tablet 25 mg PO QAM magnesium oxide 400 mg magnesium Tablet 400 mg PO DAILY semaglutide (weight loss) 0.25 mg/0.5 mL Pen Injector 0.25 mg SUBCUT Q7D colesevelam 625 mg tablet 625 mg PO TID telmisartan-hydrochlorothiazid 80-12.5 mg tablet 1 tab PO DAILY albuterol sulfate 90 mcg/actuation HFA aerosol inhaler 2 puff inhalation QID PRN (Reason: Shortness Of Breath Or Wheezing) diclofenac sodium [Voltaren Arthritis Pain] 1 % gel See Rx Instructions .ROUTE .COMPLEX Rx Instructions: Apply 2 gram to affected area(s) 4 times daily as needed. No more than 16gm per day to any lower extremityjoing and no more than 8gm per day to any uper extremity joint. Max 32gm over all joints. 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 - Location: Radiology Ordered By: Prisca Sweeney Referrals: [facility] [place] [Outside] Coral Galloway MD [Physician, Neurology] - 10/23/25 2:15 pm Referral Note: TIA follow up Christiana Lyles MD [Hospitalist, Hospitalist] - 2 weeks Referral Note: post discharge followup for right foot wet gangrene post amputation We have notified your physician's clinic of the need for a follow-up appointment to be scheduled. If you have not heard from them within the next 2 business days, please call them directly. Cm Rivera DPM [Physician, Podiatry] - 10/29/25 1:30 pm Referral Note: post discharge followup right foot gangrene Stanislav Gomes DO [Primary Care Provider, Family Practice] - 10/29/25 12:00 pm Antoine Phillip M.D [Physician, Cardiology] - 2 weeks Referral Note: Patient concerning for significant peripheral vascular disease especially involving the left lower extremity for further intervention Discharge Diet: Advance as tolerated, Cardiac and Diabetic Discharge Activity: Resume usual activity and Limit activity as instructed Patient Instructions: Amoxicillin/Clavulanate Potassium (By mouth) (Augmentin, Augmentin..., Transient Ischemic Attack (DC), Foot Care for People with Diabetes (DC), Acute Wound Care (DC), Opioid Safety, Stroke Stoplight, Patient Portal & [place] Instructions Activity Restrictions/Additional Instructions: Leave Dressing intact until follow up with Dr. Rivera. Discharge Attestations Time Spent in Discharge Care*: greater than 30 min Specific Discharge Activities: educating patient, educating and/or supporting family/caregiver, discussing with pcp/other providers, discussing with patient case coordinator/social workers/dc planners, documenting/other paperwork and evaluating patient/reviewing data Status at Discharge: Cognitive status at discharge: cognitively intact , Behavioral status at discharge: cooperative , Functional status at discharge: other assisted ambulation , Overall status at discharge: patient is progressing back to baseline Quality Metrics Clinical Quality Measures [ Cerebrovascular Accident { Contraindication to Antithrombotic: Medical contraindication; Contraindication to Anticoagulation: None; anticoagulation prescribed; Contraindication to Statin: None; Statin prescribed; Reason stroke education not provided: Stroke education provided to patient; Rehab services assessed: Activities of daily living assessment, Rehabilitation assessment, Physical therapy, Occupational therapy, Speech therapy, Stroke rehabilitation, Other; Reason rehab assessment not done: Rehab assessment done}] Coding Level of Care Code 29490 Diagnoses Diabetic peripheral neuropathy associated with type 2 diabetes mellitus E11.42 Diabetic foot infection E11.628; L08.9 CKD (chronic kidney disease) N18.9 TIA (transient ischemic attack) G45.9
--- NOTE | 2025-11-01 12:16 | PM.MISC ---
Miscellaneous Note Purpose of Documentation: Right toe osteomyelitis status post Amputation done by the podiatry Pathology report negative for osteomyelitis margins Note: The patient was already started on appropriate antibiotics as per ID recommendations and discharge accordingly. Pathology report negative for osteomyelitis and to be followed as outpatient with podiatry and other referrals that were provided for his optimization of healthcare.
== END 2025-10-22 14:31 | disposition home health service (06) | DRG 256 ==
LOC: ER 12:26 → OR 12:49 → MEDSURG 13:30
PROVIDERS: Internal Medicine; Podiatrist Foot & Ankle Surgery; Admitting Provider Student in an Organized Health Care Education/Training Program; Emergency Provider Emergency Medicine; PCP Family Medicine; Visit Provider Student in an Organized Health Care Education/Training Program
PROC: 0Y6P0Z0 Detachment at Right 1st Toe, Complete, Open Approach (ICD-10-PCS; principal; 2025-10-19 13:20)
DX: E11.52 Type 2 diabetes mellitus with diabetic peripheral angiopathy with gangrene (principal); I96 Gangrene, not elsewhere classified; E11.42 Type 2 diabetes mellitus with diabetic polyneuropathy; E11.51 Type 2 diabetes mellitus with diabetic peripheral angiopathy without gangrene; L03.031 Cellulitis of right toe; E11.22 Type 2 diabetes mellitus with diabetic chronic kidney disease; R19.7 Diarrhea, unspecified; G45.9 Transient cerebral ischemic attack, unspecified; I12.9 Hypertensive chronic kidney disease with stage 1 through stage 4 chronic kidney disease, or unspecified chronic kidney disease; N18.9 Chronic kidney disease, unspecified; E78.5 Hyperlipidemia, unspecified; I25.10 Atherosclerotic heart disease of native coronary artery without angina pectoris; Z79.02 Long term (current) use of antithrombotics/antiplatelets; Z95.5 Presence of coronary angioplasty implant and graft; Z79.899 Other long term (current) drug therapy; Z79.82 Long term (current) use of aspirin; Z88.8 Allergy status to other drugs, medicaments and biological substances; Z87.891 Personal history of nicotine dependence
CPT/HCPCS: 36415; 36416; 70450; 73630; 80053; 80061; 82607; 82746; 82962; 83036; 83540; 83550; 83605; 83735; 84100; 84145; 84443; 85025; 85610; 85651; 85730; 86140; 87040; 87070; 87075; 87205; 88305; 88311; 92523; 92610; 93005; 93306; 93880; 93925; 94664; 96365; 96372; 96375; 97161; 97164; 99285; J0330; J0692; J1100; J1644; J1815; J2020; J2405; J2543; J2704; J3010; J3373; J3490; J7030; J9999

== ENCOUNTER → 2025-10-29 13:22 | Outpatient (BNVA) | payer OTHER, SELFPAY | PROVIDERS: PCP Family Medicine; Visit Provider Podiatrist Foot & Ankle Surgery | DX: Z98.890 Other specified postprocedural states (principal); Z89.411 Acquired absence of right great toe; M79.671 Pain in right foot; M79.672 Pain in left foot; E11.8 Type 2 diabetes mellitus with unspecified complications | CPT/HCPCS: 99214 ==

== ENCOUNTER → 2025-11-06 10:50 | Outpatient (BNVA) | payer OTHER, SELFPAY | PROVIDERS: PCP Family Medicine; Visit Provider Podiatrist Foot & Ankle Surgery | DX: Z98.890 Other specified postprocedural states (principal); E11.8 Type 2 diabetes mellitus with unspecified complications; E11.621 Type 2 diabetes mellitus with foot ulcer; L97.512 Non-pressure chronic ulcer of other part of right foot with fat layer exposed | CPT/HCPCS: 99214 ==